=== PATIENT | male | born 1960 | race Caucasian/White ===

== ENCOUNTER 2020-02-17 18:24 | Observation (INO) | payer OTHER ==
[2020-02-17] MEDS ORDERED: Multivitamins, Adult 10 ML, Thiamine HCl 100 MG, Folic Acid 1 MG in Dextrose 5 %-0.45 %... IV SCH (19:00)
[2020-02-17 19:09] LABS: Bilirubin Negative (Negative); Blood, Urine Negative (Negative); Clarity Clear (Clear); Glucose, Urine (Dipstick) Normal (Negative); Ketone, Urine Negative (Negative); Leukocyte Negative Leu/uL (Negative); Nitrite Negative (Negative); Protein, Urine (Dipstick) Negative (Neg-Trace); Specific Gravity, Urine 1.003 (1.002-1.036); Urobilinogen Normal mg/dL (Less than 2)
[2020-02-17 19:15] LABS: #Eosinphils 0.3 thou/uL (0.0-0.7); #Lymphocytes 1.2 thou/uL (1.20-3.40); #Monocytes 0.4 thou/uL (0.11-0.59); #Neutrophils 2.1 thou/uL (1.40-6.50); %Basophils 0.9 % (0.0-1.0); %Eosinophils 6.8 % (0.0-10.0); %Lymphocytes 29.6 % (21.0-51.0); %Monocytes 9.7 % (0.0-10.0); %Neutrophils 53.1 % (42.0-75.0); Hemoglobin 12.6 g/dL (14.0-18.0); Mean Corpuscular HGB CONC 33.3 g/dL (32.0-36.0); Mean Corpuscular Hemoglobin 34.6 pg (27.0-31.0); Platelet Count 245 thou/uL (130-400); RBC Distribution Width 12.4 % (11.5-14.5); Red Blood Cell (RBC) Count 3.63 mill/uL (4.70-6.10); White Blood Cell (WBC) Count 3.9 thou/uL (4.8-10.8)
[2020-02-17 19:20] LABS: Amphetamine Not Detected (NotDetected); Barbiturates Screen Not Detected (NotDetected); Benzodiazepine Screen Not Detected (NotDetected); Cocaine Metabolite Screen Not Detected (NotDetected); Medtox Control Line Valid? VALID (VALID); Medtox Reader # READER 1; Methadone Not Detected (NotDetected); Methamphetamine Not Detected (NotDetected); Opiate Screen Not Detected (NotDetected); Oxycodone Screen Not Detected (NotDetected); Phencyclidine (PCP) Not Detected (NotDetected); THC/Cannabinoid Screen Not Detected (NotDetected); Tricyclic Screen Detected (NotDetected)
[2020-02-17 19:31] LABS: ALT (SGPT) 19 U/L (8-55); AST (SGOT) 20 U/L (5-34); Acetaminophen Less than 6.0 mcg/mL (10.0-30.0); Albumin 3.5 g/dL (3.5-5.0); Alcohol 73 mg/dL (Less than 10); Alcohol 74 mg/dL (Less than 10); Alkaline Phosphatase 117 U/L (40-110); Anion Gap 13 mmol/L (10-20); BUN (Urea Nitrogen) 6 mg/dL (8.4-25.7); Bilirubin, Total 0.4 mg/dL (0.2-1.2); Calc. Creatinine Clearance 0 mL/min (70-130); Carbon Dioxide 21 mmol/L (22-29); Chloride 104 mmol/L (98-107); Estimated GFR-MDRD Greater than 90; Globulin 4.3 g/dL (2.4-3.5); Glucose 93 mg/dL (70-105); Lipase 29 U/L (8-78); Magnesium 1.8 mg/dL (1.6-2.6); Potassium 3.8 mmol/L (3.5-5.1); Protein, Total 7.8 g/dL (6.0-8.3); Salicylate Less than 8.0 mg/dL (15.0-30.0); Sodium 134 mmol/L (136-145)
--- NOTE | 2020-02-17 19:36 | CT ---
CT BRAIN 02/17/20 PROVIDED CLINICAL HISTORY: Altered mental status. FINDINGS: The ventricular system appears normal in size and morphology. There is no evidence for intracranial h emorrhage or mass effect. Encephalomalacia is demonstrated involving the left PICA distribution joshua tible with remote infarction. Encephalomalacia is seen involving the inferior right frontal region co mpatible with sequela of prior insult. The extracranial soft tissues and osseous structures demonstra te an unremarkable CT appearance. IMPRESSION: No evidence for intracranial hemorrhage or mass effect. POS: NATALEE
[2020-02-17] MEDS ORDERED: Aspirin 325 MG TAB ONE (20:20)
[2020-02-17] MEDS ORDERED: Thiamine HCl 500 MG in Sodium Chloride 0.9% 100 ML IVPB SCH (20:30)
[2020-02-17] MEDS ORDERED: Acetaminophen 650 MG Suppository PR PRN (21:18)
[2020-02-17] MEDS ORDERED: HYDROcodone/Acetaminophen 5/325 mg Tablet PO PRN (21:18)
[2020-02-17] MEDS ORDERED: Acetaminophen 325 MG TAB PO PRN (21:18)
[2020-02-17] MEDS ORDERED: Ondansetron PF 4 MG/2 ML Vial IVP PRN (21:18)
[2020-02-17] MEDS ORDERED: Calcium Carbonate 500 MG ChewTAB PO PRN (21:18)
[2020-02-17] MEDS ORDERED: Ondansetron ODT 4 MG TAB PO PRN (21:18)
--- NOTE | 2020-02-17 21:24 | PDOC.HHP ---
Hospitalist HPI - History of Present Illness ataxia altered mental state History of Present Illness: Case of an 59-year-old male with a pmhx of alcohol abuse, smoker, hx of stroke with residual L sided weakness, hypothyroidism, and lung ca s/p resection who present to the hospital due to slurred speech and altered mental status. The history is complicated by the fact that the patient has very slow speech although he does not have aphasia or dysphagia he is very slow to speak and appears intoxicated. apparently his sister got concern because patient was having stroke like symptoms. At arrival patient was evaluated by ED who noted patient had ataxia nystagmus and altered mental stated, due to his history of alcohol abuse wenicke's encephalopathy was suscoected and patient was started on IV thiamine. during my evaluation it was noted that patient had significant improvement of his symptoms, seemmed no longer confused and ataxia had improved. patient was not able to answer many questions because he did not remember what had actually happened. pt does refers heavy alcohol use and a poor diet Hospitalist ROS - Review of Systems All other systems reviewed; all pertinent +/- noted in HPI/Subj - Exam General Appearance: NAD, awake alert Eye: PERRL, anicteric sclera ENT: normocephalic atraumatic, no oropharyngeal lesions, dry oral mucosa Neck: supple, symmetric, no JVD Heart: RRR, no murmur, no gallops Respiratory: CTAB, no wheezes, no rales Gastrointestinal: soft, non-tender, non-distended Extremities: no cyanosis, no clubbing, no edema Extremities - other findings: L sided weakness Skin: normal turgor, no lesions, no rashes Neurological: cranial nerve grossly intact, normal sensation to touch, no weakness, no new deficit Musculoskeletal: normal tone, normal strength, no muscle wasting Psychiatric: normal affect, normal behavior, A&O x 3 Hospitalist Results - Labs Result Diagrams: 02/17/20 19:06 02/17/20 19: Lab results: WBC 3.9 thou/uL (4.8-10.8) L 02/17/20 19: Hgb 12.6 g/dL (14.0-18.0) L 02/17/20 19: Hct 37.8 % (42.0-52.0) L 02/17/20 19: MCV 104.0 fL (78.0-98.0) H 02/17/20 19:06 Plt Count 245 thou/uL (130-400) 02/17/20 19:06 Neutrophils % 53.1 % (42.0-75.0) 02/17/20 19:06 Sodium 134 mmol/L (136-145) L 02/17/20 19:06 Potassium 3.8 mmol/L (3.5-5.1) 02/17/20 19:06 Chloride 104 mmol/L (98-107) 02/17/20 19:06 Carbon Dioxide 21 mmol/L (22-29) L 02/17/20 19:06 BUN 6 mg/dL (8.4-25.7) L 02/17/20 19:06 Creatinine 0.64 mg/dL (0.7-1.3) L 02/17/20 19:06 Glucose 93 mg/dL (70-105) 02/17/20 19:06 Calcium 9.0 mg/dL (7.8-10.44) 02/17/20 19:06 Total Bilirubin 0.4 mg/dL (0.2-1.2) 02/17/20 19:06 AST 20 U/L (5-34) 02/17/20 19:06 ALT 19 U/L (8-55) 02/17/20 19:06 Alkaline Phosphatase 117 U/L (40-110) H 02/17/20 19:06 Serum Total Protein 7.8 g/dL (6.0-8.3) 02/17/20 19:06 Albumin 3.5 g/dL (3.5-5.0) 02/17/20 19:06 Lipase 29 U/L (8-78) 02/17/20 19:06 Urine Ketones Negative mg/dL (Negative) 02/17/20 18:53 Urine Blood Negative (Negative) 02/17/20 18:53 Urine Nitrite Negative (Negative) 02/17/20 18:53 Ur Leukocyte Esterase Negative Laya/uL (Negative) 02/17/20 18:53 Hospitalist H&P A/P - Problem (1) Wernicke encephalopathy Code(s): E51.2 - WERNICKE'S ENCEPHALOPATHY Status: Acute (2) CVA (cerebral vascular accident) Code(s): I63.9 - CEREBRAL INFARCTION, UNSPECIFIED Status: Acute (3) Hypothyroidism Code(s): E03.9 - HYPOTHYROIDISM, UNSPECIFIED Status: Acute (4) History of CVA (cerebrovascular accident) Code(s): Z86.73 - PRSNL HX OF TIA (TIA), AND CEREB INFRC W/O RESID DEFICITS Status: Acute (5) Alcohol abuse Code(s): F10.10 - ALCOHOL ABUSE, UNCOMPLICATED Status: Acute (6) Smoker Code(s): F17.200 - NICOTINE DEPENDENCE, UNSPECIFIED, UNCOMPLICATED Status: Acute (7) Hx of cancer of lung Code(s): Z85.118 - PERSONAL HISTORY OF MALIGNANT NEOPLASM OF BRONCHUS AND LUNG Status: Acute - Plan Plan: 59y/o male with the stated pmhx who presents with h/s wernickes encephalopathy r/o cva wenickes encephalopathy - tried on nystagmus ataxia and confusion - hx of alcohol abuse and poor nutrition - will start iv thiamine 500mg iv tid for 2-3 days, then switch to 250mg iv or im daily for 5 days then discharge with 100mg po daily - nuero checks r/o cva / tia - ischemic event still in the Ddx - head ct negative for acute event, does show old infarcts - will eveluated with MRI, 2echo and carotid doppler - starting secondary preventon with asa and statin - evaluation on modifiable risk factors with lipid panel and a1c -pt / ot / speech alcohol abuse -ase protocol smoker - advice to quit hypothyroidism - check tsh - refers recent increase to 75mcg
[2020-02-17] MEDS ORDERED: Diazepam 5 MG TAB PO PRN (22:01)
[2020-02-17] MEDS ORDERED: Diazepam 5 MG TAB PO SCH (22:15)
[2020-02-17] MEDS ORDERED: Lorazepam 2 MG/ML VIAL ONE (23:08)
[2020-02-18] MEDS ORDERED: Multivitamins, Adult 10 ML, Folic Acid 1 MG, Thiamine HCl 100 MG in Dextrose 5 %-0.45 %... IV SCH (01:30)
[2020-02-18 03:51] VITALS: BMI 20.6
[2020-02-18] MEDS ORDERED: Diazepam 5 MG TAB PO PRN (04:00)
[2020-02-18 05:39] LABS: Hemoglobin A1c 4.4 % (4.0-6.0)
[2020-02-18 05:53] LABS: ALT (SGPT) 18 U/L (8-55); AST (SGOT) 18 U/L (5-34); Albumin 3.1 g/dL (3.5-5.0); Alkaline Phosphatase 103 U/L (40-110); Anion Gap 11 mmol/L (10-20); BUN (Urea Nitrogen) 7 mg/dL (8.4-25.7); Bilirubin, Total 0.4 mg/dL (0.2-1.2); Calc. Creatinine Clearance 129 mL/min (70-130); Calcium 8.7 mg/dL (7.8-10.44); Carbon Dioxide 24 mmol/L (22-29); Cardiac Risk 3.8 (Less than 4.5); Chloride 108 mmol/L (98-107); Cholesterol 152 mg/dl (< 200 Desired); Estimated GFR-MDRD Greater than 90; Globulin 3.7 g/dL (2.4-3.5); Glucose 135 mg/dL (70-105); HDL Cholesterol 40 mg/dL (>60 Neg Risk); LDL Cholesterol, Calculated 99 mg/dL; Magnesium 1.9 mg/dL (1.6-2.6); Potassium 3.8 mmol/L (3.5-5.1); Protein, Total 6.8 g/dL (6.0-8.3); Sodium 139 mmol/L (136-145); Triglycerides 66 mg/dL (Less than 150)
[2020-02-18 06:04] LABS: Band 2 % (5-11); Eosinophils 3 % (0-10); Hemoglobin 12.3 g/dL (14.0-18.0); Lymphocytes 29 % (21-51); MDiff Complete? YES; Macrocytosis SLIGHT = 6-15 cells (100X) (0-5/hpf); Mean Corpuscular HGB CONC 32.2 g/dL (32.0-36.0); Mean Corpuscular Hemoglobin 33.4 pg (27.0-31.0); Mean Platelet Volume 7.2 fL (7.4-10.4); Monocytes 7 % (0-10); Neutrophil 59 % (42-75); Platelet Count 247 thou/uL (130-400); Platelet Morphology Comment Appears Adequate; RBC Distribution Width 12.4 % (11.5-14.5); Red Blood Cell (RBC) Count 3.67 mill/uL (4.70-6.10); White Blood Cell (WBC) Count 3.4 thou/uL (4.8-10.8)
[2020-02-18] MEDS ORDERED: Folic Acid 1 MG TAB PO SCH (09:00)
[2020-02-18] MEDS ORDERED: Gabapentin 300 MG CAP PO SCH (09:00)
[2020-02-18] MEDS ORDERED: Enoxaparin Sodium 40 MG/0.4 ML SYRINGE SC SCH (09:00)
[2020-02-18] MEDS ORDERED: Aspirin 325 mg Enteric Coated Tablet PO SCH (09:00)
[2020-02-18] MEDS ORDERED: Magnesium Oxide 400 MG TAB PO SCH (09:00)
[2020-02-18] MEDS ORDERED: Levothyroxine Sodium 75 MCG TAB PO SCH (09:00)
[2020-02-18] MEDS ORDERED: Multivitamin W/ Minerals 1 TAB PO SCH (09:00)
[2020-02-18] MEDS ORDERED: Thiamine HCl 200 MG/2 ML VIAL SLOW IVP SCH (09:00)
--- NOTE | 2020-02-18 09:42 | ULT ---
BILATERAL CAROTID DUPLEX ULTRASOUND: DATE: 02/18/2020 HISTORY: CVA. TECHNIQUE: Faith scale ultrasound with color flow and spectral Doppler imaging of the extracranial carotid artery systems performed bilaterally. FINDINGS: No significant plaque formation or intimal wall thickening is seen on either side. The peak systolic velocity in the right ICA measures 60 cm/second with an end-diastolic velocity of 1 8 cm/second and a systolic ratio of 0.65. The peak systolic velocity in the left ICA measures 51 cm/second with an end-diastolic velocity of 18 cm/second and a systolic ratio of 0.65. Flow in both vertebral arteries remains antegrade. IMPRESSION: No evidence of hemodynamically significant stenosis. POS: MZA
--- NOTE | 2020-02-18 10:48 | MRI ---
MRI BRAIN WITHOUT CONTRAST: DATE: 02/18/2020 HISTORY: Altered mental status, stroke. FINDINGS: Correlation is made with the previous day's CT scan. No restricted diffusion is seen. No evidence of infarct, hemorrhage, midline shift, or abnormal extra -axial fluid collections are seen. The ventricular size is normal and the basilar cisterns are patent . Encephalomalacia in the inferior right frontal lobe is likely due to remote insult. No tonsillar he rniation is seen. There is mild mucosal disease in the paranasal sinuses. IMPRESSION: No evidence of acute intracranial process. POS: CHALINO
[2020-02-18] MEDS: Thiamine HCl 500 MG in Sodium Chloride 0.9% 250 ML 250 ML IVPB SCH ×2 (10:56→14:59)
[2020-02-18 12:08] VITALS: BP 121/76; TEMP 98.1
--- NOTE | 2020-02-18 12:18 | CON ---
NEUROLOGY CONSULTATION DATE OF CONSULTATION: 02/18/2020 REASON FOR CONSULTATION: Altered mental status, history of alcohol abuse/ataxia. HISTORY OF PRESENT ILLNESS: Mr. Feliz is a 59-year-old male with medical history significant for alcohol abuse, nicotine abuse, history of prior stroke with left-sided weakness, hypothyroidism, and status post lung carcinoma resection, presented to the hospital with an episode of slurred speech and altered mental status. The history was complicated because the patient seems to be intoxicated. Apparently, the sister got concerned because the patient was having stroke-like symptoms and she decided to bring him to the hospital for further evaluation. On examination in the emergency room, he was found to have ataxia, nystagmus, and seemed to be confused, and there was a concern about Wernicke encephalopathy, so he was started on IV thiamine, which resolved his symptoms and his altered mental status and ataxia have improved. The patient does have history of heavy alcohol use and poor diet. The patient denies nausea, vomiting, headache, chest pain, abdominal pain, recent illness or recent sick contacts or exposure to COVID. REVIEW OF SYSTEMS: All other systems reviewed and were negative except the pertinent positives and negatives mentioned in the HPI. ALLERGIES: NKDA PAST MEDICAL HISTORY: significant for alcohol abuse, nicotine abuse, history of prior stroke with left-sided weakness, hypothyroidism, and Lung ca PAST SURGICAL HISTORY: status post lung carcinoma resection FAMILY HISTORY: Not significant SOCIAL HISTORY: History of alcohol abuse - Exam 121/76 94 18 General Appearance: NAD, awake alert Eye: PERRL, anicteric sclera ENT: normocephalic atraumatic, no oropharyngeal lesions, dry oral mucosa Neck: supple, symmetric, no JVD Heart: RRR, no murmur, no gallops Respiratory: CTAB, no wheezes, no rales Gastrointestinal: soft, non-tender, non-distended Extremities: no cyanosis, no clubbing, no edema Extremities - other findings: L sided weakness Skin: normal turgor, no lesions, no rashes Neurological: cranial nerve grossly intact, normal sensation to touch, no weakness Musculoskeletal: normal tone, normal strength, no muscle wasting Psychiatric: normal affect, normal behavior, A&O x 3 LABORATORY AND DIAGNOSTIC DATA: Data reviewed. I reviewed the labs, which were significant for anemia, hemoglobin of 12.6 and hematocrit 37.8. Hyponatremia of 134. WBC 3.9 thou/uL (4.8-10.8) L 02/17/20 19:06 Hgb 12.6 g/dL (14.0-18.0) L 02/17/20 19:06 Hct 37.8 % (42.0-52.0) L 02/17/20 19:06 MCV 104.0 fL (78.0-98.0) H 02/17/20 19:06 Plt Count 245 thou/uL (130-400) 02/17/20 19:06 Neutrophils % 53.1 % (42.0-75.0) 02/17/20 19:06 Sodium 134 mmol/L (136-145) L 02/17/20 19:06 Potassium 3.8 mmol/L (3.5-5.1) 02/17/20 19:06 Chloride 104 mmol/L (98-107) 02/17/20 19:06 Carbon Dioxide 21 mmol/L (22-29) L 02/17/20 19:06 BUN 6 mg/dL (8.4-25.7) L 02/17/20 19:06 Creatinine 0.64 mg/dL (0.7-1.3) L 02/17/20 19:06 Glucose 93 mg/dL (70-105) 02/17/20 19:06 Calcium 9.0 mg/dL (7.8-10.44) 02/17/20 19:06 Total Bilirubin 0.4 mg/dL (0.2-1.2) 02/17/20 19:06 AST 20 U/L (5-34) 02/17/20 19:06 ALT 19 U/L (8-55) 02/17/20 19:06 Alkaline Phosphatase 117 U/L (40-110) H 02/17/20 19:06 Serum Total Protein 7.8 g/dL (6.0-8.3) 02/17/20 19:06 Albumin 3.5 g/dL (3.5-5.0) 02/17/20 19:06 Lipase 29 U/L (8-78) 02/17/20 19:06 Urine Ketones Negative mg/dL (Negative) 02/17/20 18:53 Urine Blood Negative (Negative) 02/17/20 18:53 Urine Nitrite Negative (Negative) 02/17/20 18:53 Ur Leukocyte Esterase Negative Laya/uL (Negative) 02/17/20 18:53 ASSESSMENT AND PLAN: (1) Wernicke encephalopathy Code(s): E51.2 - WERNICKE'S ENCEPHALOPATHY Status: Acute (2) CVA (cerebral vascular accident) Code(s): I63.9 - CEREBRAL INFARCTION, UNSPECIFIED Status: Acute (3) Hypothyroidism Code(s): E03.9 - HYPOTHYROIDISM, UNSPECIFIED Status: Acute (4) History of CVA (cerebrovascular accident) Code(s): Z86.73 - PRSNL HX OF TIA (TIA), AND CEREB INFRC W/O RESID DEFICITS Status: Acute (5) Alcohol abuse Code(s): F10.10 - ALCOHOL ABUSE, UNCOMPLICATED Status: Acute (6) Smoker Code(s): F17.200 - NICOTINE DEPENDENCE, UNSPECIFIED, UNCOMPLICATED Status: Acute (7) Hx of cancer of lung Code(s): Z85.118 - PERSONAL HISTORY OF MALIGNANT NEOPLASM OF BRONCHUS AND LUNG Status: Acute Mr. Feliz is a 59-year-old male, who presented with altered mental status with nystagmus and ataxia in the setting of alcohol abuse and poor nutrition. Wernicke encephalopathy is high on the differential. Continue thiamine supplementation, which resulted in improvement of his symptoms. Continue neuro checks every 4 hours. MRI of the brain reviewed, which was negative for acute intracranial pathology. 2D echo completed, results pending, we will follow up on the results. Carotid Dopplers did not reveal hemodynamically significant stenosis. Continue aspirin and high-intensity statin for secondary stroke prevention. PT/OT/speech. The patient is back to the baseline in terms of mental status and is alert and oriented to person, place, and time. CIWA protocol. Continue home medications. Continue medical management per primary team. Plan discussed with the patient and also with the nursing staff. Job ID: [id number] [facility]
[2020-02-18 16:22] LABS: SARS-CoV-2 MS2 Positive; SARS-CoV-2 N Gene Negative; SARS-CoV-2 S Gene Negative; SARS-CoV-2 by NAA Not Detected (NotDetected); SARS-CoV-2 orf1ab Negative
--- NOTE | 2020-02-18 19:34 | DIS ---
DATE OF ADMISSION: 02/17/2020 DATE OF DISCHARGE: 02/18/2020 DISCHARGE DIAGNOSES: As of the following; 1. Ataxia, altered mental status. 2. Alcohol abuse. 3. Lung cancer with recent resection. HOSPITAL COURSE: The patient is a 59-year-old male who initially presented to the hospital with ataxia and altered mental status. There was a concern for possible stroke versus TIA. At this time, the patient was noted to have an elevated alcohol level. He was admitted for stroke, TIA workup. CT head initially was negative. He did undergo a stroke workup including a brain MRI, carotid Dopplers, and echo. Brain MRI indicated no evidence of intracranial processes. Carotid Doppler was normal and also echocardiogram indicated an EF of 50% to 55% with no significant abnormalities noted. The patient at this time felt well. He was up, oriented to self. Also he had a sponsor with him at the bedside. The patient at this time will be discharged home. He will follow up with primary. He was advised to refrain from alcohol. He states that he has never had any alcohol withdrawal symptoms. DISCHARGE PHYSICAL EXAMINATION: VITAL SIGNS: 98.6, 90, 20, 96% on room air, 111/66. GENERAL: He is awake, alert, and oriented x3. Does not appear in distress. CV: S1, S2 present. No murmurs, rubs, or gallops. HOME MEDICATIONS: 1. Seroquel 2 tabs at bedtime. 2. [place] 3 tabs at bedtime, his lithium level was low. 3. Gabapentin 3 tabs b.i.d. 4. Levothyroxine 75 mcg daily. 5. Thiamine 100 mg daily. 6. Folic acid one daily. 7. Atorvastatin 40 mg daily. 8. Aspirin 81 mg daily. Again, he will be discharged to home. I have asked him to refrain from alcohol use. Job ID: [id number]
[2020-02-18] MEDS ORDERED: Atorvastatin Calcium 40 MG TAB PO SCH (21:00)
[2020-02-19] MEDS ORDERED: Levothyroxine Sodium 75 MCG TAB PO SCH (06:00)
== END 2020-02-18 15:00 | disposition home or self-care (01) ==
LOC: ERS 18:24 → 2SE 20:57
PROVIDERS: ADMIT Internal Medicine; ATTEND Internal Medicine
DX: R41.82 Altered mental status, unspecified (principal); R27.0 Ataxia, unspecified; R47.81 Slurred speech; F10.10 Alcohol abuse, uncomplicated; F17.210 Nicotine dependence, cigarettes, uncomplicated; I69.354 Hemiplegia and hemiparesis following cerebral infarction affecting left non-dominant side; E03.9 Hypothyroidism, unspecified; D64.9 Anemia, unspecified; E87.1 Hypo-osmolality and hyponatremia; Z85.118 Personal history of other malignant neoplasm of bronchus and lung; Z79.899 Other long term (current) drug therapy; Z20.828 Contact with and (suspected) exposure to other viral communicable diseases; Y90.3 Blood alcohol level of 60-79 mg/100 ml; Z12.31 Encounter for screening mammogram for malignant neoplasm of breast
CPT/HCPCS: 36415; 36416; 70450; 70551; 80053; 80061; 80178; 80306; 80307; 81003; 83036; 83690; 83735; 84443; 85007; 85025; 85027; 87040; 87086; 87635; 93005; 93306; 93880; 96365; 96366; 96368; 96372; 96375; G0378; J1650; J2060; J3411; J3475; J3490; J7042; J7050; U0003

== ENCOUNTER → 2020-02-17 | Emergency (ER) | payer OTHER | LOC: ERS 22:31 | DX: Z53.21 Procedure and treatment not carried out due to patient leaving prior to being seen by health care provider (principal) | CPT/HCPCS: 36416 ==

== ENCOUNTER 2022-12-31 12:33 | Inpatient (IN) | payer OTHER ==
[~2022-12-31 12:33] MED LIST: Iopamidol-370 76% 500 ML MDV (1 ML CHARGE) ONE
[2022-12-31 13:23] LABS: #Eosinphils 0.1 thou/uL (0.0-0.7); #Monocytes 1.2 thou/uL (0.11-0.59); #Neutrophils 8.3 thou/uL (1.40-6.50); %Basophils 0.2 % (0.0-1.0); %Eosinophils 0.8 % (0.0-10.0); %Lymphocytes 9.7 % (21.0-51.0); %Monocytes 11.4 % (0.0-10.0); %Neutrophils 77.4 % (42.0-75.0); Hematocrit 40.6 % (42.0-52.0); Hemoglobin 13.7 g/dL (14.0-18.0); Mean Corpuscular HGB CONC 33.7 g/dL (32.0-36.0); Mean Corpuscular Hemoglobin 33.5 pg (27.0-31.0); Mean Corpuscular Volume 99.3 fl (78.0-98.0); Mean Platelet Volume 9.5 fL (7.4-10.4); Platelet Count 269 10x3/uL (130-400); RBC Distribution Width 13.1 % (11.5-14.5); Red Blood Cell (RBC) Count 4.09 mill/uL (4.70-6.10); White Blood Cell (WBC) Count 10.7 10x3/uL (4.8-10.8)
[2022-12-31 13:45] LABS: ALT (SGPT) 14 U/L (8-55); AST (SGOT) 16 U/L (5-34); Alcohol Less than 10.0 mg/dL (Less than 10); Alkaline Phosphatase 109 U/L (40-110); Anion Gap 19 mmol/L (10-20); BUN (Urea Nitrogen) 20 mg/dL (8.4-25.7); Bilirubin, Total 1.9 mg/dL (0.2-1.2); Calc. Creatinine Clearance 0 mL/min (70-130); Calcium 9.3 mg/dL (7.8-10.44); Carbon Dioxide 22 mmol/L (23-31); Chloride 107 mmol/L (98-107); Estimated GFR 107; Globulin 3.2 g/dL (2.4-3.5); Glucose 92 mg/dL (80-115); Potassium 3.9 mmol/L (3.5-5.1); Protein, Total 7.2 g/dL (5.8-8.1); Sodium 144 mmol/L (136-145)
[2022-12-31] MEDS ORDERED: Thiamine HCl 200 MG/2 ML VIAL SLOW IVP SCH ×2 (13:45→15:00)
[2022-12-31 13:46] LABS: Acetaminophen Less than 10 mcg/mL (10.0-30.0); Alcohol Less than 10.0 mg/dL (Less than 10); Lipase 32 U/L (8-78); Magnesium 1.8 mg/dL (1.6-2.6); Salicylate Less than 8.0 mg/dL (15.0-30.0)
[2022-12-31] MEDS ORDERED: Dexamethasone 10 MG/ML VIAL ONE (14:01)
[2022-12-31] MEDS ORDERED: Senokot S 8.6-50 MG TAB PO PRN (14:40)
[2022-12-31] MEDS ORDERED: Acetaminophen 650 MG Suppository PR PRN (14:40)
[2022-12-31] MEDS ORDERED: Ondansetron PF 4 MG/2 ML Vial IVP PRN (14:40)
[2022-12-31] MEDS ORDERED: Lorazepam 1 MG TAB PO PRN (14:40)
[2022-12-31] MEDS ORDERED: Electrolyte Replacement Protocol 1 EACH FS SCH (14:45)
[2022-12-31 15:20] LABS: Troponin I Less than 0.010 ng/mL (< 0.028)
[2022-12-31] MEDS: Sodium Chloride 0.9% 1,000 ML IV SCH (15:59)
[2022-12-31] MEDS ORDERED: FLU VACC QS2023-24(6MOS UP)/PF 60 MCG/0.5 ML SYRINGE IM ONE (16:00)
[2022-12-31 16:53] LABS: #Monocytes 0.3 thou/uL (0.11-0.59); #Neutrophils 7.7 thou/uL (1.40-6.50); %Basophils 0.2 % (0.0-1.0); %Eosinophils 0.2 % (0.0-10.0); %Lymphocytes 5.6 % (21.0-51.0); %Monocytes 3.9 % (0.0-10.0); %Neutrophils 89.9 % (42.0-75.0); Hematocrit 40.5 % (42.0-52.0); Hemoglobin 13.9 g/dL (14.0-18.0); Mean Corpuscular HGB CONC 34.3 g/dL (32.0-36.0); Mean Corpuscular Hemoglobin 33.8 pg (27.0-31.0); Mean Corpuscular Volume 98.5 fl (78.0-98.0); Mean Platelet Volume 9.9 fL (7.4-10.4); Platelet Count 238 10x3/uL (130-400); RBC Distribution Width 13.3 % (11.5-14.5); Red Blood Cell (RBC) Count 4.11 mill/uL (4.70-6.10); White Blood Cell (WBC) Count 8.6 10x3/uL (4.8-10.8)
[2022-12-31 17:38] LABS: Amphetamine Not Detected (NotDetected); Barbiturates Screen Not Detected (NotDetected); Benzodiazepine Screen Not Detected (NotDetected); Cocaine Metabolite Screen Not Detected (NotDetected); Methadone Not Detected (NotDetected); Methamphetamine Detected (NotDetected); Opiate Screen Not Detected (NotDetected); Oxycodone Screen Not Detected (NotDetected); Phencyclidine (PCP) Not Detected (NotDetected); THC/Cannabinoid Screen Not Detected (NotDetected); Tricyclic Screen Not Detected (NotDetected)
[2022-12-31 17:43] LABS: Bacteria/HPF None Seen HPF (None Seen); Bilirubin 1+ (Negative); Blood, Urine Negative (Negative); CAUTI Indications for Culture Alt mental st,lethar; Clarity Clear (Clear); Glucose, Urine (Dipstick) Normal (Negative); Ketone, Urine 100 mg/dL (Negative); Leukocyte Negative Leu/uL (Negative); Nitrite Negative (Negative); Protein, Urine (Dipstick) 30 mg/dL (Neg-Trace); RBC/HPF 0-3 HPF (0-3); Specific Gravity, Urine 1.023 (1.002-1.036); Squamous Epithelial None Seen HPF (0-3); Urobilinogen Greater than 12 mg/dL (Less than 2); WBC/HPF 0-3 HPF (0-3)
[2022-12-31 17:44] LABS: Urine Culture Reflex No No
[2022-12-31] MEDS: Atorvastatin Calcium 40 MG TAB PO SCH (20:58)
[2022-12-31] MEDS: Dexamethasone 4 mg/ml Vial SLOW IVP SCH (21:37)
[2022-12-31] MEDS ORDERED: Dexamethasone 4 MG TAB PO SCH (22:00)
[2023-01-01] MEDS ORDERED: Magnesium 2 GM/50 ML(in water) 2 GM in Premix Bag 1 BAG IVPB SCH (01:45)
[2023-01-01] MEDS: Dexamethasone 4 mg/ml Vial SLOW IVP SCH ×4 (04:19→21:59)
[2023-01-01 05:13] LABS: #Neutrophils 17.5 thou/uL (1.40-6.50); %Basophils 0.2 % (0.0-1.0); %Lymphocytes 2.6 % (21.0-51.0); %Monocytes 5.2 % (0.0-10.0); %Neutrophils 91.3 % (42.0-75.0); Hematocrit 43.6 % (42.0-52.0); Hemoglobin 14.8 g/dL (14.0-18.0); Mean Corpuscular HGB CONC 33.9 g/dL (32.0-36.0); Mean Corpuscular Hemoglobin 33.1 pg (27.0-31.0); Mean Corpuscular Volume 97.5 fl (78.0-98.0); Mean Platelet Volume 9.8 fL (7.4-10.4); RBC Distribution Width 13.2 % (11.5-14.5); Red Blood Cell (RBC) Count 4.47 mill/uL (4.70-6.10)
[2023-01-01] MEDS ORDERED: Sodium Chloride 0.9% 500 ML IV SCH (05:15)
[2023-01-01 05:23] LABS: Hemoglobin A1c 4.8 % (4.0-6.0)
[2023-01-01 05:29] LABS: White Blood Cell (WBC) Count 19.2 10x3/uL (4.8-10.8)
[2023-01-01 05:30] LABS: Platelet Count 355 10x3/uL (130-400)
[2023-01-01] MEDS ORDERED: Acetaminophen 325 MG Suppository PR SCH (05:30)
[2023-01-01 05:45] LABS: ALT (SGPT) 17 U/L (8-55); AST (SGOT) 16 U/L (5-34); Alkaline Phosphatase 118 U/L (40-110); Anion Gap 21 mmol/L (10-20); BUN (Urea Nitrogen) 17 mg/dL (8.4-25.7); Calc. Creatinine Clearance 105 mL/min (70-130); Calcium 9.4 mg/dL (7.8-10.44); Carbon Dioxide 19 mmol/L (23-31); Chloride 108 mmol/L (98-107); Cholesterol 165 mg/dl (< 200 Desired); Estimated GFR 110; Globulin 3.3 g/dL (2.4-3.5); Glucose 101 mg/dL (80-115); HDL Cholesterol 41 mg/dL (>60 Neg Risk); LDL Cholesterol, Calculated 113 mg/dL; Potassium 3.7 mmol/L (3.5-5.1); Protein, Total 7.3 g/dL (5.8-8.1); Sodium 144 mmol/L (136-145); Triglycerides 55 mg/dL (Less than 150)
[2023-01-01] MEDS ORDERED: Cefepime 2 GM in Sodium Chloride 0.9% 100 ML IVPB SCH (06:00)
[2023-01-01] MEDS: Sodium Chloride 0.9% 1,000 ML IV SCH (06:00)
[2023-01-01] MEDS ORDERED: Piperacillin/Tazobactam 3.375 GM in Sodium Chloride 0.9% 100 ML IVPB SCH (06:00)
[2023-01-01 06:01] LABS: #Monocytes 1.2 thou/uL (0.11-0.59); #Neutrophils 16.8 thou/uL (1.40-6.50); %Basophils 0.1 % (0.0-1.0); %Monocytes 6.3 % (0.0-10.0); %Neutrophils 91.2 % (42.0-75.0); Hematocrit 42.5 % (42.0-52.0); Hemoglobin 14.4 g/dL (14.0-18.0); Mean Corpuscular HGB CONC 33.9 g/dL (32.0-36.0); Mean Corpuscular Hemoglobin 33.8 pg (27.0-31.0); Mean Corpuscular Volume 99.8 fl (78.0-98.0); Mean Platelet Volume 9.6 fL (7.4-10.4); Platelet Count 320 10x3/uL (130-400); RBC Distribution Width 13.2 % (11.5-14.5); Red Blood Cell (RBC) Count 4.26 mill/uL (4.70-6.10); White Blood Cell (WBC) Count 18.4 10x3/uL (4.8-10.8)
[2023-01-01] MEDS: Levothyroxine Sodium 75 MCG TAB PO SCH (06:20)
[2023-01-01 07:53] LABS: Lactic Acid 1.4 mmol/L (0.5-2.2)
[2023-01-01] MEDS ORDERED: Vancomycin (BATCH) 1.5 GM 1.5 GM in Premix Bag 1 BAG IVPB SCH (08:00)
[2023-01-01] MEDS ORDERED: Aspirin Chewable 81 MG TAB PO SCH (09:00)
[2023-01-01] MEDS ORDERED: Aspirin 300 MG Suppository PR SCH (09:00)
[2023-01-01 09:27] VITALS: BMI 17.5
[2023-01-01] MEDS: Folic Acid 1 MG TAB PO SCH (11:25)
[2023-01-01] MEDS: Multivit, Therapeutic 1 TAB PO SCH (11:25)
[2023-01-01] MEDS: Piperacillin/Tazobactam 3.375 GM in Sodium Chloride 0.9% 100 ML IVPB SCH ×2 (12:18→17:46)
[2023-01-01 13:55] LABS: Actual Bicarbonate (HCO3a) 22.4 mEq/L (22-28); Base Excess (BEa) -0.1 mEq/L (-2.0 to +3.0); CO2 Tension 30.9 mmHg (35.0-45.0); Carboxyhemoglobin (COHb) 1.1 gm% (0.0-3.0); Hematocrit-ABG 42 % (42.0-52.0); Hemoglobin (Hb) 14.4 g/dL (14.0-18.0); O2 Tension (PaO2), arterial 72.4 mmHg (> 80.0); Potassium - ABG Lab 3.55 mmol/L (3.70-5.30); Puncture Site RRA; pH, Arterial 7.479 (7.35-7.45)
[2023-01-01] MEDS: Lactated Ringer's 1,000 ML IV SCH ×2 (14:05→17:52)
[2023-01-01] MEDS ORDERED: Lorazepam 1 MG TAB PO PRN (14:41)
[2023-01-01] MEDS ORDERED: Thiamine HCl 200 MG/2 ML VIAL SLOW IVP SCH (15:15)
[2023-01-01] MEDS: Thiamine HCl 200 MG/2 ML VIAL SLOW IVP SCH (16:47)
[2023-01-01] MEDS: Nystatin 500,000 UNITS/5 ML UDCUP SSP SCH (20:25)
[2023-01-01] MEDS: Famotidine/PF 20 mg/2ml Vial SLOW IVP SCH (20:26)
[2023-01-01] MEDS: Ketorolac Tromethamine 30 MG/ML VIAL IVP PRN (20:26)
[2023-01-01] MEDS: Vancomycin 1 GM in Premix Bag 1 BAG IVPB SCH (20:27)
[2023-01-01] MEDS: Atorvastatin Calcium 40 MG TAB PO SCH (20:27)
[2023-01-02] MEDS: Piperacillin/Tazobactam 3.375 GM in Sodium Chloride 0.9% 100 ML IVPB SCH ×3 (02:15→18:24)
[2023-01-02 04:54] LABS: ALT (SGPT) 14 U/L (8-55); AST (SGOT) 10 U/L (5-34); Albumin 3.3 g/dL (3.4-4.8); Alkaline Phosphatase 78 U/L (40-110); Anion Gap 15 mmol/L (10-20); BUN (Urea Nitrogen) 22 mg/dL (8.4-25.7); Bilirubin, Total 1.9 mg/dL (0.2-1.2); Calc. Creatinine Clearance 103 mL/min (70-130); Calcium 9.3 mg/dL (7.8-10.44); Carbon Dioxide 23 mmol/L (23-31); Chloride 110 mmol/L (98-107); Estimated GFR 109; Glucose 133 mg/dL (80-115); Phosphorus 2.5 mg/dL (2.3-4.7); Potassium 3.7 mmol/L (3.5-5.1); Protein, Total 6.3 g/dL (5.8-8.1); Sodium 144 mmol/L (136-145)
[2023-01-02] MEDS: Dexamethasone 4 mg/ml Vial SLOW IVP SCH ×4 (05:05→21:28)
[2023-01-02] MEDS: Levothyroxine Sodium 75 MCG TAB PO SCH (05:09)
[2023-01-02] MEDS ORDERED: Magnesium 2 GM/50 ML(in water) 2 GM in Premix Bag 1 BAG IVPB SCH (08:00)
[2023-01-02] MEDS: Famotidine/PF 20 mg/2ml Vial SLOW IVP SCH ×2 (09:25→21:28)
[2023-01-02] MEDS: Nystatin 500,000 UNITS/5 ML UDCUP SSP SCH ×4 (09:29→20:35)
[2023-01-02] MEDS: Lactated Ringer's 1,000 ML IV SCH (09:45)
[2023-01-02] MEDS: Vancomycin 1 GM in Premix Bag 1 BAG IVPB SCH ×2 (09:46→20:34)
[2023-01-02 09:55] LABS: Hematocrit 42.1 % (42.0-52.0); Hemoglobin 13.9 g/dL (14.0-18.0); Mean Corpuscular Hemoglobin 33.4 pg (27.0-31.0); Mean Corpuscular Volume 101.2 fl (78.0-98.0); Mean Platelet Volume 10.2 fL (7.4-10.4); Platelet Count 172 10x3/uL (130-400); RBC Distribution Width 13.4 % (11.5-14.5); Red Blood Cell (RBC) Count 4.16 mill/uL (4.70-6.10)
[2023-01-02 10:01] LABS: Delete Auto Diff?? YES; Manual Diff?? YES
[2023-01-02] MEDS: Folic Acid 1 MG TAB PO SCH (10:21)
[2023-01-02] MEDS: Multivit, Therapeutic 1 TAB PO SCH (10:21)
[2023-01-02 10:25] LABS: Anisocytosis SLIGHT = 6-15 cells HPF (0-5); Band 28 % (5-11); CellaVision Operator ID lab.dlt; Lymphocytes 3 % (21-51); Macrocytosis SLIGHT = 6-15 cells HPF (0-5); Monocytes 5 % (0-10); Neutrophil 64 % (42-75); Platelet Adequacy Comment Platelets Normal; Poikilocytosis SLIGHT = 6-15 cells HPF (0-5); Polychromasia SLIGHT = 2-3 cells HPF (0-2); Smudge Cells 6.9 %; Total Cell Count 102
[2023-01-02] MEDS: Ketorolac Tromethamine 30 MG/ML VIAL IVP PRN (11:28)
[2023-01-02] MEDS ORDERED: Lorazepam 1 MG TAB PO PRN (14:41)
[2023-01-02] MEDS: Thiamine HCl 200 MG/2 ML VIAL SLOW IVP SCH (15:10)
[2023-01-02] MEDS: Acetaminophen 325 MG TAB PO PRN (17:11)
[2023-01-02 19:41] LABS: Vancomycin, Trough 7.9 ug/mL
[2023-01-02] MEDS: Atorvastatin Calcium 40 MG TAB PO SCH (20:35)
[2023-01-02] MEDS ORDERED: Ketorolac Tromethamine 30 MG/ML VIAL IVP SCH (21:15)
[2023-01-02] MEDS: traMADol HCl 50 MG TAB PO PRN (21:28)
[2023-01-03] MEDS: Piperacillin/Tazobactam 3.375 GM in Sodium Chloride 0.9% 100 ML IVPB SCH ×3 (01:56→18:49)
[2023-01-03] MEDS: Vancomycin 1 GM in Premix Bag 1 BAG IVPB SCH ×2 (04:39→12:39)
[2023-01-03] MEDS: Dexamethasone 4 mg/ml Vial SLOW IVP SCH ×4 (04:40→21:52)
[2023-01-03] MEDS: Acetaminophen 325 MG TAB PO PRN (04:40)
[2023-01-03] MEDS: Levothyroxine Sodium 75 MCG TAB PO SCH (04:42)
[2023-01-03 05:07] LABS: #Monocytes 0.4 thou/uL (0.11-0.59); #Neutrophils 7.8 thou/uL (1.40-6.50); %Basophils 0.1 % (0.0-1.0); %Lymphocytes 6.8 % (21.0-51.0); %Monocytes 4.9 % (0.0-10.0); %Neutrophils 86.2 % (42.0-75.0); Hemoglobin 11.5 g/dL (14.0-18.0); Mean Corpuscular HGB CONC 32.9 g/dL (32.0-36.0); Mean Corpuscular Hemoglobin 33.4 pg (27.0-31.0); Mean Corpuscular Volume 101.7 fl (78.0-98.0); Mean Platelet Volume 10.1 fL (7.4-10.4); Platelet Count 144 10x3/uL (130-400); RBC Distribution Width 13.1 % (11.5-14.5); Red Blood Cell (RBC) Count 3.44 mill/uL (4.70-6.10)
[2023-01-03 05:30] LABS: Anion Gap 9 mmol/L (10-20); BUN (Urea Nitrogen) 11 mg/dL (8.4-25.7); Calc. Creatinine Clearance 116 mL/min (70-130); Calcium 8.5 mg/dL (7.8-10.44); Carbon Dioxide 24 mmol/L (23-31); Chloride 104 mmol/L (98-107); Estimated GFR 113; Glucose 149 mg/dL (80-115); Magnesium 1.7 mg/dL (1.6-2.6); Potassium 3.4 mmol/L (3.5-5.1); Sodium 134 mmol/L (136-145)
[2023-01-03] MEDS: traMADol HCl 50 MG TAB PO PRN ×2 (05:45→15:38)
[2023-01-03 06:32] LABS: ALT (SGPT) 10 U/L (8-55); AST (SGOT) 8 U/L (5-34); Albumin 2.7 g/dL (3.4-4.8); Alkaline Phosphatase 63 U/L (40-110); Anion Gap 12 mmol/L (10-20); BUN (Urea Nitrogen) 11 mg/dL (8.4-25.7); Bilirubin, Total 0.6 mg/dL (0.2-1.2); Calc. Creatinine Clearance 105 mL/min (70-130); Calcium 8.4 mg/dL (7.8-10.44); Carbon Dioxide 23 mmol/L (23-31); Chloride 104 mmol/L (98-107); Estimated GFR 110; Globulin 2.7 g/dL (2.4-3.5); Glucose 181 mg/dL (80-115); Potassium 3.5 mmol/L (3.5-5.1); Protein, Total 5.4 g/dL (5.8-8.1); Sodium 135 mmol/L (136-145)
[2023-01-03] MEDS ORDERED: Potassium Chloride 20 MEQ TAB PO SCH (08:00)
[2023-01-03] MEDS ORDERED: Magnesium 2 GM/50 ML(in water) 2 GM in Premix Bag 1 BAG IVPB SCH (08:00)
[2023-01-03] MEDS: Multivit, Therapeutic 1 TAB PO SCH (08:45)
[2023-01-03] MEDS: Folic Acid 1 MG TAB PO SCH (08:45)
[2023-01-03] MEDS: Nystatin 500,000 UNITS/5 ML UDCUP SSP SCH ×4 (08:45→20:04)
[2023-01-03] MEDS: Famotidine/PF 20 mg/2ml Vial SLOW IVP SCH ×2 (08:46→20:05)
[2023-01-03] MEDS ORDERED: Potassium Bicarbonate/Cit Ac 20 MEQ TAB PO SCH (11:30)
[2023-01-03] MEDS ORDERED: Thiamine 100 MG TAB PO SCH (15:00)
[2023-01-03] MEDS: Thiamine HCl 200 MG/2 ML VIAL SLOW IVP SCH (15:38)
[2023-01-03 19:22] LABS: Vancomycin, Trough 10.2 ug/mL
[2023-01-03] MEDS: VANCOMYCIN (BATCH) 1.25 GM 1.25 GM in Premix Bag 1 BAG IVPB SCH (20:04)
[2023-01-03] MEDS: Atorvastatin Calcium 40 MG TAB PO SCH (20:05)
[2023-01-04] MEDS: Piperacillin/Tazobactam 3.375 GM in Sodium Chloride 0.9% 100 ML IVPB SCH ×3 (01:40→18:24)
[2023-01-04] MEDS: VANCOMYCIN (BATCH) 1.25 GM 1.25 GM in Premix Bag 1 BAG IVPB SCH ×3 (03:21→20:37)
[2023-01-04] MEDS: Dexamethasone 4 mg/ml Vial SLOW IVP SCH ×4 (03:21→22:37)
[2023-01-04] MEDS: Levothyroxine Sodium 75 MCG TAB PO SCH (05:20)
[2023-01-04] MEDS: Multivit, Therapeutic 1 TAB PO SCH (09:25)
[2023-01-04] MEDS: Folic Acid 1 MG TAB PO SCH (09:25)
[2023-01-04] MEDS: Famotidine/PF 20 mg/2ml Vial SLOW IVP SCH ×2 (09:25→20:02)
[2023-01-04] MEDS: Nystatin 500,000 UNITS/5 ML UDCUP SSP SCH ×4 (09:25→20:02)
[2023-01-04] MEDS ORDERED: Potassium Chloride 20 MEQ TAB PO SCH (10:30)
[2023-01-04] MEDS: traMADol HCl 50 MG TAB PO PRN (13:14)
[2023-01-04] MEDS: Lorazepam 0.5 MG TAB PO PRN (13:18)
[2023-01-04] MEDS: Thiamine 100 MG TAB PO SCH (16:09)
[2023-01-04 19:37] LABS: Vancomycin, Trough 16.8 ug/mL
[2023-01-04] MEDS: Atorvastatin Calcium 40 MG TAB PO SCH (20:02)
[2023-01-04] MEDS: QUEtiapine 200 MG TAB PO SCH (20:02)
[2023-01-05] MEDS: Piperacillin/Tazobactam 3.375 GM in Sodium Chloride 0.9% 100 ML IVPB SCH ×3 (02:26→17:16)
[2023-01-05] MEDS: Dexamethasone 4 mg/ml Vial SLOW IVP SCH ×3 (04:55→20:18)
[2023-01-05] MEDS: VANCOMYCIN (BATCH) 1.25 GM 1.25 GM in Premix Bag 1 BAG IVPB SCH (04:55)
[2023-01-05] MEDS: Levothyroxine Sodium 75 MCG TAB PO SCH (05:49)
[2023-01-05] MEDS: Aripiprazole 10 MG TAB PO SCH (08:35)
[2023-01-05] MEDS: Nystatin 500,000 UNITS/5 ML UDCUP SSP SCH ×4 (08:36→20:18)
[2023-01-05] MEDS: Famotidine/PF 20 mg/2ml Vial SLOW IVP SCH ×2 (08:36→20:18)
[2023-01-05] MEDS: Folic Acid 1 MG TAB PO SCH (08:36)
[2023-01-05] MEDS: Multivit, Therapeutic 1 TAB PO SCH (08:36)
[2023-01-05] MEDS: Lorazepam 0.5 MG TAB PO PRN (09:26)
[2023-01-05] MEDS ORDERED: Electrolyte Replacement Protocol FS PRN (15:00)
[2023-01-05] MEDS: Thiamine 100 MG TAB PO SCH (15:53)
[2023-01-05] MEDS: Atorvastatin Calcium 40 MG TAB PO SCH (20:18)
[2023-01-05] MEDS: QUEtiapine 200 MG TAB PO SCH (20:18)
[2023-01-05] MEDS ORDERED: Potassium Chloride 20 MEQ TAB PO SCH (21:30)
[2023-01-05] MEDS ORDERED: Magnesium 2 GM/50 ML(in water) 2 GM in Premix Bag 1 BAG IVPB SCH (21:30)
[2023-01-06] MEDS: Piperacillin/Tazobactam 3.375 GM in Sodium Chloride 0.9% 100 ML IVPB SCH ×3 (02:59→17:55)
[2023-01-06] MEDS: Levothyroxine Sodium 75 MCG TAB PO SCH (05:45)
[2023-01-06] MEDS ORDERED: Potassium Chloride 20 MEQ TAB PO SCH (07:45)
[2023-01-06] MEDS: Famotidine/PF 20 mg/2ml Vial SLOW IVP SCH ×2 (09:05→20:58)
[2023-01-06] MEDS: Nystatin 500,000 UNITS/5 ML UDCUP SSP SCH ×4 (09:05→20:58)
[2023-01-06] MEDS: Dexamethasone 4 mg/ml Vial SLOW IVP SCH ×2 (09:06→20:59)
[2023-01-06] MEDS: Aripiprazole 10 MG TAB PO SCH (09:06)
[2023-01-06] MEDS: Multivit, Therapeutic 1 TAB PO SCH (09:06)
[2023-01-06] MEDS: Folic Acid 1 MG TAB PO SCH (09:06)
[2023-01-06] MEDS: traMADol HCl 50 MG TAB PO PRN ×2 (09:39→15:25)
[2023-01-06] MEDS: Calcium Carbonate 500 MG ChewTAB PO PRN (09:39)
[2023-01-06] MEDS: Thiamine 100 MG TAB PO SCH (15:26)
[2023-01-06] MEDS ORDERED: hydrALAZINE 20 MG/ML VIAL ONE (16:07)
[2023-01-06] MEDS: Atorvastatin Calcium 40 MG TAB PO SCH (20:58)
[2023-01-06] MEDS: QUEtiapine 200 MG TAB PO SCH (20:58)
[2023-01-07] MEDS: Piperacillin/Tazobactam 3.375 GM in Sodium Chloride 0.9% 100 ML IVPB SCH ×3 (03:00→18:02)
[2023-01-07 04:44] LABS: #Monocytes 0.7 thou/uL (0.11-0.59); #Neutrophils 2.7 thou/uL (1.40-6.50); %Eosinophils 0.3 % (0.0-10.0); %Lymphocytes 15.1 % (21.0-51.0); %Monocytes 17.1 % (0.0-10.0); Hematocrit 38.7 % (42.0-52.0); Mean Corpuscular HGB CONC 33.6 g/dL (32.0-36.0); Mean Corpuscular Hemoglobin 33.3 pg (27.0-31.0); Mean Corpuscular Volume 99.2 fl (78.0-98.0); Mean Platelet Volume 10.4 fL (7.4-10.4); Platelet Count 125 10x3/uL (130-400); RBC Distribution Width 12.8 % (11.5-14.5)
[2023-01-07 04:56] LABS: INR-International Normal Ratio 1.1; PTT 26.6 sec (22.9-36.1); Prothrombin Time 14.7 sec (12.0-14.7)
[2023-01-07] MEDS: Levothyroxine Sodium 75 MCG TAB PO SCH (06:50)
[2023-01-07 07:13] LABS: Anion Gap 12 mmol/L (10-20); BUN (Urea Nitrogen) 11 mg/dL (8.4-25.7); Calc. Creatinine Clearance 116 mL/min (70-130); Calcium 8.5 mg/dL (7.8-10.44); Carbon Dioxide 24 mmol/L (23-31); Chloride 102 mmol/L (98-107); Estimated GFR 113; Glucose 131 mg/dL (80-115); Potassium 4.3 mmol/L (3.5-5.1); Sodium 134 mmol/L (136-145)
[2023-01-07] MEDS ORDERED: fentaNYL 50 mcg/mL 1 mL Vial ONE (09:12)
[2023-01-07] MEDS ORDERED: Midazolam HCl 2 mg/2 ml Vial ONE (09:12)
[2023-01-07] MEDS ORDERED: Sodium Bicarbonate 2.5 MEQ/5 ML VIAL ONE (09:13)
[2023-01-07] MEDS: Dexamethasone 4 mg/ml Vial SLOW IVP SCH ×2 (09:19→20:43)
[2023-01-07] MEDS: Folic Acid 1 MG TAB PO SCH (09:20)
[2023-01-07] MEDS: Multivit, Therapeutic 1 TAB PO SCH (09:20)
[2023-01-07] MEDS: Famotidine/PF 20 mg/2ml Vial SLOW IVP SCH (09:20)
[2023-01-07] MEDS: Aripiprazole 10 MG TAB PO SCH (09:20)
[2023-01-07] MEDS: Nystatin 500,000 UNITS/5 ML UDCUP SSP SCH ×4 (09:21→20:43)
[2023-01-07] MEDS: traMADol HCl 50 MG TAB PO PRN ×2 (11:55→18:07)
[2023-01-07] MEDS: Thiamine 100 MG TAB PO SCH (15:21)
[2023-01-07] MEDS: QUEtiapine 200 MG TAB PO SCH (20:43)
[2023-01-07] MEDS: Atorvastatin Calcium 40 MG TAB PO SCH (20:43)
[2023-01-07] MEDS: Famotidine 20 MG TAB PO SCH (20:43)
[2023-01-08] MEDS: traMADol HCl 50 MG TAB PO PRN ×4 (00:18→22:47)
[2023-01-08] MEDS: Piperacillin/Tazobactam 3.375 GM in Sodium Chloride 0.9% 100 ML IVPB SCH ×2 (01:05→10:48)
[2023-01-08] MEDS: Levothyroxine Sodium 75 MCG TAB PO SCH (05:17)
[2023-01-08] MEDS: Calcium Carbonate 500 MG ChewTAB PO PRN (09:15)
[2023-01-08] MEDS: Folic Acid 1 MG TAB PO SCH (09:16)
[2023-01-08] MEDS: Nystatin 500,000 UNITS/5 ML UDCUP SSP SCH ×4 (09:16→21:39)
[2023-01-08] MEDS: Aripiprazole 10 MG TAB PO SCH (09:16)
[2023-01-08] MEDS: Multivit, Therapeutic 1 TAB PO SCH (09:17)
[2023-01-08] MEDS: Famotidine 20 MG TAB PO SCH ×2 (09:17→21:39)
[2023-01-08] MEDS: Dexamethasone 4 mg/ml Vial SLOW IVP SCH ×2 (10:47→21:39)
[2023-01-08] MEDS ORDERED: Magnesium 2 GM/50 ML(in water) 2 GM in Premix Bag 1 BAG IVPB SCH (11:00)
[2023-01-08] MEDS ORDERED: Bisacodyl 10 MG SUPP PR SCH (14:15)
[2023-01-08] MEDS ORDERED: Senokot S 8.6-50 MG TAB PO SCH (15:30)
[2023-01-08] MEDS: Thiamine 100 MG TAB PO SCH (17:02)
[2023-01-08] MEDS: Acetaminophen 325 MG TAB PO PRN ×2 (17:02→22:46)
[2023-01-08] MEDS: QUEtiapine 200 MG TAB PO SCH (21:39)
[2023-01-08] MEDS: Atorvastatin Calcium 40 MG TAB PO SCH (21:39)
[2023-01-09 05:10] LABS: Magnesium 2.1 mg/dL (1.6-2.6)
[2023-01-09] MEDS: Levothyroxine Sodium 75 MCG TAB PO SCH (06:41)
[2023-01-09] MEDS ORDERED: Senokot S 8.6-50 MG TAB PO SCH (09:00)
[2023-01-09] MEDS: Nystatin 500,000 UNITS/5 ML UDCUP SSP SCH ×2 (10:08→13:39)
[2023-01-09] MEDS: Multivit, Therapeutic 1 TAB PO SCH (10:09)
[2023-01-09] MEDS: Folic Acid 1 MG TAB PO SCH (10:09)
[2023-01-09] MEDS: Aripiprazole 10 MG TAB PO SCH (10:09)
[2023-01-09] MEDS: Dexamethasone 4 mg/ml Vial SLOW IVP SCH (10:09)
[2023-01-09] MEDS: Famotidine 20 MG TAB PO SCH (10:09)
[2023-01-09] MEDS: traMADol HCl 50 MG TAB PO PRN ×2 (10:27→15:44)
[2023-01-09] MEDS: Acetaminophen 325 MG TAB PO PRN (13:38)
[2023-01-09] MEDS: Thiamine 100 MG TAB PO SCH (15:44)
[2023-01-09 16:32] VITALS: BP 115/88; TEMP 98.3
== END 2023-01-09 16:58 | disposition home or self-care (01) | DRG 180 ==
LOC: SUATTDRO 12:33 → ERS 12:33 → ERHOLD 14:32 → 2SE 20:35
PROVIDERS: ADMIT Internal Medicine; ATTEND Family Medicine
PROC: 4A00X4Z Measurement of Central Nervous Electrical Activity, External Approach (ICD-10-PCS; principal; 2023-01-01)
PROC: 0GB33ZX Excision of Right Adrenal Gland, Percutaneous Approach, Diagnostic (ICD-10-PCS; 2023-01-01)
PROC: 4A033R1 Measurement of Arterial Saturation, Peripheral, Percutaneous Approach (ICD-10-PCS; 2023-01-01)
DX: C34.90 Malignant neoplasm of unspecified part of unspecified bronchus or lung (principal); E43 Unspecified severe protein-calorie malnutrition; G93.6 Cerebral edema; J69.0 Pneumonitis due to inhalation of food and vomit; I61.9 Nontraumatic intracerebral hemorrhage, unspecified; C79.31 Secondary malignant neoplasm of brain; E51.2 Wernicke's encephalopathy; Z68.1 Body mass index [BMI] 19.9 or less, adult; C79.89 Secondary malignant neoplasm of other specified sites; G93.40 Encephalopathy, unspecified; C25.9 Malignant neoplasm of pancreas, unspecified; Z66 Do not resuscitate; Z51.5 Encounter for palliative care; R41.82 Altered mental status, unspecified; F39 Unspecified mood [affective] disorder; G93.9 Disorder of brain, unspecified; E03.9 Hypothyroidism, unspecified; F17.210 Nicotine dependence, cigarettes, uncomplicated; F10.10 Alcohol abuse, uncomplicated; R63.4 Abnormal weight loss; E27.8 Other specified disorders of adrenal gland; K86.89 Other specified diseases of pancreas; R91.1 Solitary pulmonary nodule; F15.10 Other stimulant abuse, uncomplicated; R53.81 Other malaise; Z90.2 Acquired absence of lung [part of]; Z98.890 Other specified postprocedural states; Z79.899 Other long term (current) drug therapy; Z86.73 Personal history of transient ischemic attack (TIA), and cerebral infarction without residual deficits
CPT/HCPCS: 36415; 36600; 50200; 70450; 70553; 71045; 71260; 74177; 74230; 77012; 77014; 77280; 77290; 77307; 77334; 77412; 80048; 80053; 80061; 80178; 80202; 80306; 80307; 81001; 82140; 82805; 83036; 83605; 83690; 83735; 83880; 84100; 84443; 84484; 85025; 85610; 85730; 86301; 87040; 87077; 87149; 88305; 88333; 88334; 88341; 88342; 93005; 93306; 95711; 95819; 95957; 96361; 96374; 96375; J0360; J1100; J1885; J2250; J2543; J3010; J3370; J3370-JW; J3411; J3475; J3490; J7030; J7050; J7120; Q9967; S0028

== ENCOUNTER 2023-01-28 12:30 | Outpatient (CLI) | payer OTHER | END 2023-01-28 12:31 | disposition home or self-care (01) | LOC: PET 12:30 | PROVIDERS: ATTEND Internal Medicine | DX: C34.82 Malignant neoplasm of overlapping sites of left bronchus and lung (principal); C79.31 Secondary malignant neoplasm of brain; M79.9 Soft tissue disorder, unspecified; R59.0 Localized enlarged lymph nodes | CPT/HCPCS: 78815; A9552 ==

== ENCOUNTER 2023-02-06 10:11 | Inpatient (IN) | payer OTHER ==
[2023-02-06] MEDS ORDERED: Cefepime 2 GM VIAL ONE (10:45)
[2023-02-06] MEDS ORDERED: Vancomycin 1 GM/200 ML (FROZEN) BAG ONE (10:45)
[2023-02-06] MEDS ORDERED: Sodium Chloride 0.9% 0 ML ONE (10:45)
[2023-02-06 10:53] LABS: Hematocrit 35.4 % (42.0-52.0); Hemoglobin 11.7 g/dL (14.0-18.0); Mean Corpuscular HGB CONC 33.1 g/dL (32.0-36.0); Mean Corpuscular Hemoglobin 32.9 pg (27.0-31.0); Mean Corpuscular Volume 99.4 fl (78.0-98.0); Mean Platelet Volume 10.9 fL (7.4-10.4); RBC Distribution Width 14.7 % (11.5-14.5); Red Blood Cell (RBC) Count 3.56 mill/uL (4.70-6.10); White Blood Cell (WBC) Count 1.3 10x3/uL (4.8-10.8)
[2023-02-06 10:58] LABS: Manual Diff?? YES; Platelet Count 69 10x3/uL (130-400)
[2023-02-06 11:00] LABS: Delete Auto Diff?? YES
[2023-02-06 11:21] LABS: Acetaminophen 12 mcg/mL (10.0-30.0); Alcohol Less than 10.0 mg/dL (Less than 10); Lipase 14 U/L (8-78); Salicylate Less than 8.0 mg/dL (15.0-30.0)
[2023-02-06 11:24] LABS: ALT (SGPT) 27 U/L (8-55); AST (SGOT) 11 U/L (5-34); Alkaline Phosphatase 128 U/L (40-110); Anion Gap 16 mmol/L (10-20); BUN (Urea Nitrogen) 35 mg/dL (8.4-25.7); Bilirubin, Total 1.9 mg/dL (0.2-1.2); Calc. Creatinine Clearance 0 mL/min (70-130); Calcium 9.2 mg/dL (7.8-10.44); Carbon Dioxide 22 mmol/L (23-31); Chloride 105 mmol/L (98-107); Estimated GFR 104; Globulin 3.1 g/dL (2.4-3.5); Glucose 125 mg/dL (80-115); Potassium 4.4 mmol/L (3.5-5.1); Protein, Total 6.1 g/dL (5.8-8.1); Sodium 139 mmol/L (136-145)
[2023-02-06 11:32] LABS: Bacteria/HPF None Seen HPF (None Seen); Bilirubin Negative (Negative); Blood, Urine Trace (Negative); CAUTI Indications for Culture Alt mental st,lethar; Clarity Clear (Clear); Glucose, Urine (Dipstick) 30 mg/dL (Negative); Ketone, Urine Negative (Negative); Leukocyte Negative Leu/uL (Negative); Nitrite Negative (Negative); Protein, Urine (Dipstick) 50 mg/dL (Neg-Trace); Specific Gravity, Urine 1.019 (1.002-1.036); Squamous Epithelial None Seen HPF (0-3); Urobilinogen 6 mg/dL (Less than 2); pH, Urine 6.5 (5.0-9.0)
[2023-02-06 11:57] LABS: Band 27 % (5-11); Large Platelets 7.1 % (0-5); Lymphocytes 12 % (21-51); Metamyelocyte 4 % (0-0); Monocytes 5 % (0-10); Neutrophil 50 % (42-75); Nucleated RBC (Manual Ct) 1 % (0); Platelet Adequacy Comment Platelets Decreased; Polychromasia SLIGHT = 2-3 cells HPF (0-2); Reactive Lymphocytes 1 % (0-10); Total Cell Count 113; Toxic Granulation SLIGHT; Vacuoles SLIGHT
[2023-02-06 12:10] LABS: Urine Culture Reflex No No
[2023-02-06 12:18] LABS: Amphetamine Not Detected (NotDetected); Barbiturates Screen Not Detected (NotDetected); Benzodiazepine Screen Not Detected (NotDetected); Cocaine Metabolite Screen Not Detected (NotDetected); Methadone Not Detected (NotDetected); Methamphetamine Not Detected (NotDetected); Opiate Screen Detected (NotDetected); Oxycodone Screen Not Detected (NotDetected); Phencyclidine (PCP) Not Detected (NotDetected); THC/Cannabinoid Screen Detected (NotDetected); Tricyclic Screen Detected (NotDetected)
[2023-02-06 14:06] LABS: Lactic Acid 5.5 mmol/L (0.5-2.2)
[2023-02-06] MEDS ORDERED: hydrOXYzine 25 MG TAB PO PRN (14:47)
[2023-02-06] MEDS ORDERED: Acetaminophen 325 MG TAB PO PRN (14:52)
[2023-02-06] MEDS ORDERED: Lactated Ringer's 1,000 ML IV SCH (15:00)
[2023-02-06] MEDS ORDERED: Prochlorperazine Maleate 5 MG TAB PO PRN (15:02)
[2023-02-06 17:31] VITALS: BMI 15.8
[2023-02-06] MEDS ORDERED: Dexamethasone 4 MG TAB PO SCH (21:00)
[2023-02-06] MEDS ORDERED: Acetaminophen 650 MG Suppository PR SCH (21:15)
[2023-02-06 21:59] LABS: Magnesium 1.8 mg/dL (1.6-2.6)
[2023-02-06] MEDS ORDERED: Dexamethasone 4 mg/ml Vial SLOW IVP SCH (22:00)
[2023-02-06] MEDS: QUEtiapine 200 MG TAB PO SCH (23:47)
[2023-02-06] MEDS: Dexamethasone 4 mg/ml Vial SLOW IVP SCH (23:49)
[2023-02-07] MEDS: Lactated Ringer's 1,000 ML IV SCH ×5 (00:14→19:13)
[2023-02-07] MEDS: Cefepime 2 GM in Sodium Chloride 0.9% 100 ML IVPB SCH ×2 (00:15→11:53)
[2023-02-07] MEDS ORDERED: Acetaminophen 650 MG Suppository PR PRN ×3 (01:00→23:59)
[2023-02-07] MEDS: Vancomycin HCl 750 MG in Sodium Chloride 0.9% 250 ML 250 ML IVPB SCH ×2 (01:02→13:18)
[2023-02-07 05:11] LABS: Hematocrit 28.8 % (42.0-52.0); Hemoglobin 9.6 g/dL (14.0-18.0); Mean Corpuscular HGB CONC 33.3 g/dL (32.0-36.0); Mean Corpuscular Hemoglobin 33.9 pg (27.0-31.0); Mean Corpuscular Volume 101.8 fl (78.0-98.0); Mean Platelet Volume 10.4 fL (7.4-10.4); RBC Distribution Width 14.8 % (11.5-14.5); Red Blood Cell (RBC) Count 2.83 mill/uL (4.70-6.10); White Blood Cell (WBC) Count 2.8 10x3/uL (4.8-10.8)
[2023-02-07 05:23] LABS: Delete Auto Diff?? YES; Manual Diff?? YES; Platelet Count 43 10x3/uL (130-400)
[2023-02-07 05:38] LABS: Lactic Acid 1.9 mmol/L (0.5-2.2)
[2023-02-07 05:39] LABS: Anion Gap 10 mmol/L (10-20); BUN (Urea Nitrogen) 18 mg/dL (8.4-25.7); Calc. Creatinine Clearance 116 mL/min (70-130); Calcium 9.2 mg/dL (7.8-10.44); Carbon Dioxide 23 mmol/L (23-31); Chloride 107 mmol/L (98-107); Estimated GFR 116; Glucose 133 mg/dL (80-115); Sodium 136 mmol/L (136-145)
[2023-02-07 06:03] LABS: Band 33 % (5-11); CellaVision Operator ID lab.abc; Large Platelets 3.7 % (0-5); Lymphocytes 1 % (21-51); Metamyelocyte 1 % (0-0); Monocytes 7 % (0-10); Neutrophil 58 % (42-75); Platelet Adequacy Comment Platelets Decreased; RBC Morphology Within Normal Limits; Smudge Cells 16.7 %; Total Cell Count 108
[2023-02-07] MEDS: Levothyroxine Sodium 75 MCG TAB PO SCH (06:05)
[2023-02-07] MEDS: HYDROcodone/Acetaminophen 5/325 mg Tablet PO PRN ×2 (06:12→20:51)
[2023-02-07] MEDS ORDERED: FLU VACC QS2023-24(6MOS UP)/PF 60 MCG/0.5 ML SYRINGE IM ONE (09:00)
[2023-02-07] MEDS: Dexamethasone 4 mg/ml Vial SLOW IVP SCH ×3 (09:49→20:49)
[2023-02-07] MEDS: Folic Acid 1 MG TAB PO SCH (09:49)
[2023-02-07] MEDS: Famotidine 20 MG TAB PO SCH (09:49)
[2023-02-07] MEDS: OLANZapine 5 MG TAB PO SCH (09:49)
[2023-02-07] MEDS: QUEtiapine 200 MG TAB PO SCH (20:49)
[2023-02-07 23:23] LABS: Vancomycin, Trough 4.4 ug/mL
[2023-02-08] MEDS: Cefepime 2 GM in Sodium Chloride 0.9% 100 ML IVPB SCH ×3 (00:12→22:21)
[2023-02-08] MEDS: Vancomycin HCl 750 MG in Sodium Chloride 0.9% 250 ML 250 ML IVPB SCH (00:22)
[2023-02-08] MEDS: Vancomycin 1 GM in Premix 1 BAG IVPB SCH ×3 (02:04→16:24)
[2023-02-08] MEDS: Lactated Ringer's 1,000 ML IV SCH ×2 (06:35→09:56)
[2023-02-08] MEDS: Levothyroxine Sodium 75 MCG TAB PO SCH (06:35)
[2023-02-08 06:40] LABS: #Monocytes 0.3 thou/uL (0.11-0.59); #Neutrophils 3.1 thou/uL (1.40-6.50); %Basophils 0.6 % (0.0-1.0); %Lymphocytes 2.8 % (21.0-51.0); %Neutrophils 87.5 % (42.0-75.0); Hematocrit 28.7 % (42.0-52.0); Hemoglobin 9.5 g/dL (14.0-18.0); Mean Corpuscular HGB CONC 33.1 g/dL (32.0-36.0); Mean Corpuscular Hemoglobin 32.5 pg (27.0-31.0); Mean Corpuscular Volume 98.3 fl (78.0-98.0); Mean Platelet Volume 11.1 fL (7.4-10.4); RBC Distribution Width 14.6 % (11.5-14.5); Red Blood Cell (RBC) Count 2.92 mill/uL (4.70-6.10); White Blood Cell (WBC) Count 3.5 10x3/uL (4.8-10.8)
[2023-02-08 07:05] LABS: Anion Gap 12 mmol/L (10-20); BUN (Urea Nitrogen) 17 mg/dL (8.4-25.7); Calc. Creatinine Clearance 124 mL/min (70-130); Calcium 9.2 mg/dL (7.8-10.44); Carbon Dioxide 21 mmol/L (23-31); Chloride 103 mmol/L (98-107); Estimated GFR 118; Glucose 140 mg/dL (80-115); Potassium 4.2 mmol/L (3.5-5.1); Sodium 132 mmol/L (136-145)
[2023-02-08 07:37] LABS: Platelet Count 47 10x3/uL (130-400)
[2023-02-08] MEDS: Dexamethasone 4 mg/ml Vial SLOW IVP SCH ×2 (08:51→15:56)
[2023-02-08] MEDS: OLANZapine 5 MG TAB PO SCH (08:51)
[2023-02-08] MEDS: Famotidine 20 MG TAB PO SCH (08:51)
[2023-02-08] MEDS: Folic Acid 1 MG TAB PO SCH (08:51)
[2023-02-08 09:36] LABS: Ovalocytes SLIGHT = 2-5 cells (100X) (0-1/hpf); Platelet Adequacy Comment Significant decrease
[2023-02-08] MEDS ORDERED: Sodium Chloride 0.9% 0 ML ONE (11:16)
[2023-02-08 11:49] LABS: Manual Diff?? YES
[2023-02-08 12:13] LABS: Band 6 % (5-11); Lymphocytes 5 % (21-51); Monocytes 7 % (0-10); Neutrophil 82 % (42-75)
[2023-02-08] MEDS: HYDROcodone/Acetaminophen 5/325 mg Tablet PO PRN ×2 (15:56→22:29)
[2023-02-08 16:45] LABS: Troponin I Less than 0.010 ng/mL (< 0.028)
[2023-02-08] MEDS: Lidocaine 2% Viscous Solution 10 ML, Aluminum & Magnesium Hydroxide 30 ML SSW SCH ×2 (17:14→17:17)
[2023-02-08] MEDS: QUEtiapine 200 MG TAB PO SCH (22:28)
[2023-02-09 01:50] LABS: Vancomycin, Trough 13.3 ug/mL
[2023-02-09] MEDS: Vancomycin 1 GM in Premix 1 BAG IVPB SCH ×3 (02:26→17:42)
[2023-02-09] MEDS ORDERED: Vancomycin 1 GM in Premix 1 BAG IVPB SCH (02:30)
[2023-02-09] MEDS: Levothyroxine Sodium 75 MCG TAB PO SCH (05:17)
[2023-02-09] MEDS: HYDROcodone/Acetaminophen 5/325 mg Tablet PO PRN ×2 (05:17→17:53)
[2023-02-09 06:44] LABS: Hematocrit 30.2 % (42.0-52.0); Hemoglobin 10.3 g/dL (14.0-18.0); Mean Corpuscular HGB CONC 34.1 g/dL (32.0-36.0); Mean Corpuscular Hemoglobin 33.4 pg (27.0-31.0); Mean Corpuscular Volume 98.1 fl (78.0-98.0); Mean Platelet Volume 12.1 fL (7.4-10.4); RBC Distribution Width 14.3 % (11.5-14.5); Red Blood Cell (RBC) Count 3.08 mill/uL (4.70-6.10); White Blood Cell (WBC) Count 3.8 10x3/uL (4.8-10.8)
[2023-02-09 06:46] LABS: Delete Auto Diff?? YES; Manual Diff?? YES; Platelet Count 35 10x3/uL (130-400)
[2023-02-09] MEDS: Lactated Ringer's 1,000 ML IV SCH ×2 (07:17→09:51)
[2023-02-09 07:25] LABS: Band 13 % (5-11); CellaVision Operator ID LAB.GE; Lymphocytes 5 % (21-51); Metamyelocyte 1 % (0-0); Monocytes 9 % (0-10); Neutrophil 71 % (42-75); Platelet Adequacy Comment Significant decrease; Polychromasia SLIGHT = 2-3 cells HPF (0-2); Total Cell Count 101
[2023-02-09] MEDS ORDERED: Dexamethasone 4 MG TAB PO SCH (08:00)
[2023-02-09] MEDS ORDERED: Pantoprazole 40 MG VIAL IVP SCH (09:00)
[2023-02-09] MEDS: OLANZapine 5 MG TAB PO SCH (09:54)
[2023-02-09] MEDS: Folic Acid 1 MG TAB PO SCH (09:54)
[2023-02-09] MEDS: Cefepime 2 GM in Sodium Chloride 0.9% 100 ML IVPB SCH ×2 (11:58→23:21)
[2023-02-09] MEDS: Morphine 2 MG/ML VIAL SLOW IVP PRN ×2 (16:05→22:26)
[2023-02-09] MEDS: Dexamethasone 4 MG TAB PO SCH (22:26)
[2023-02-09] MEDS: QUEtiapine 200 MG TAB PO SCH (22:26)
[2023-02-10] MEDS ORDERED: Vancomycin (BATCH) 1.25 GM in Premix 1 BAG IVPB SCH (02:15)
[2023-02-10 02:24] LABS: Hematocrit 27.3 % (42.0-52.0); Hemoglobin 9.2 g/dL (14.0-18.0); Mean Corpuscular HGB CONC 33.7 g/dL (32.0-36.0); Mean Corpuscular Hemoglobin 33.5 pg (27.0-31.0); Mean Corpuscular Volume 99.3 fl (78.0-98.0); Mean Platelet Volume 11.9 fL (7.4-10.4); RBC Distribution Width 14.4 % (11.5-14.5); Red Blood Cell (RBC) Count 2.75 mill/uL (4.70-6.10)
[2023-02-10] MEDS: Vancomycin 1 GM in Premix 1 BAG IVPB SCH (02:40)
[2023-02-10 02:44] LABS: Delete Auto Diff?? YES; Manual Diff?? YES; Platelet Count 30 10x3/uL (130-400)
[2023-02-10 03:04] LABS: Anisocytosis SLIGHT = 6-15 cells HPF (0-5); Band 5 % (5-11); CellaVision Operator ID LAB.JMM; Lymphocytes 1 % (21-51); Macrocytosis SLIGHT = 6-15 cells HPF (0-5); Metamyelocyte 1 % (0-0); Monocytes 12 % (0-10); Neutrophil 81 % (42-75); Platelet Adequacy Comment Significant decrease; Polychromasia SLIGHT = 2-3 cells HPF (0-2); Total Cell Count 100
[2023-02-10] MEDS: Morphine 2 MG/ML VIAL SLOW IVP PRN ×2 (03:51→21:17)
[2023-02-10] MEDS: Lactated Ringer's 1,000 ML IV SCH ×2 (04:31→21:00)
[2023-02-10] MEDS: Levothyroxine Sodium 75 MCG TAB PO SCH (05:38)
[2023-02-10] MEDS: Dexamethasone 4 MG TAB PO SCH ×3 (10:00→21:26)
[2023-02-10] MEDS: OLANZapine 5 MG TAB PO SCH (10:00)
[2023-02-10] MEDS: Folic Acid 1 MG TAB PO SCH (10:00)
[2023-02-10] MEDS: Cefepime 2 GM in Sodium Chloride 0.9% 100 ML IVPB SCH (12:24)
[2023-02-10] MEDS: Vancomycin (BATCH) 1.25 GM in Premix 1 BAG IVPB SCH ×3 (13:40→22:23)
[2023-02-10] MEDS ORDERED: Docusate 100 MG CAP PO PRN (14:15)
[2023-02-10] MEDS ORDERED: Polyethylene Glycol 3350 17 GM Packet PO PRN (14:16)
[2023-02-10] MEDS ORDERED: Aluminum & Magnesium Hydroxide 60 ML, diphenhydrAMINE 150 MG, Lidocaine 2% Viscous Solu... SSW PRN (15:32)
[2023-02-10] MEDS ORDERED: Furosemide 20 MG/2 ML VIAL SLOW IVP SCH (17:30)
[2023-02-10] MEDS: Dronabinol 2.5 MG CAP PO SCH (18:33)
[2023-02-10] MEDS: QUEtiapine 200 MG TAB PO SCH (21:26)
[2023-02-11] MEDS: Cefepime 2 GM in Sodium Chloride 0.9% 100 ML IVPB SCH ×2 (00:31→11:04)
[2023-02-11] MEDS: Vancomycin (BATCH) 1.25 GM in Premix 1 BAG IVPB SCH ×3 (05:24→21:35)
[2023-02-11] MEDS: Levothyroxine Sodium 75 MCG TAB PO SCH (05:24)
[2023-02-11 05:57] LABS: Hematocrit 30.3 % (42.0-52.0); Hemoglobin 10.2 g/dL (14.0-18.0); Mean Corpuscular HGB CONC 33.7 g/dL (32.0-36.0); Mean Corpuscular Volume 98.1 fl (78.0-98.0); Mean Platelet Volume 12.4 fL (7.4-10.4); RBC Distribution Width 14.3 % (11.5-14.5); Red Blood Cell (RBC) Count 3.09 mill/uL (4.70-6.10); White Blood Cell (WBC) Count 2.3 10x3/uL (4.8-10.8)
[2023-02-11 06:05] LABS: Delete Auto Diff?? YES; Manual Diff?? YES; Platelet Count 35 10x3/uL (130-400)
[2023-02-11 06:26] LABS: Anion Gap 15 mmol/L (10-20); BUN (Urea Nitrogen) 17 mg/dL (8.4-25.7); Calc. Creatinine Clearance 132 mL/min (70-130); Carbon Dioxide 22 mmol/L (23-31); Chloride 102 mmol/L (98-107); Estimated GFR 121; Glucose 142 mg/dL (80-115); Potassium 4.1 mmol/L (3.5-5.1); Sodium 135 mmol/L (136-145); Vancomycin, Trough 17.7 ug/mL
[2023-02-11 06:35] LABS: Band 2 % (5-11); CellaVision Operator ID lab.abc; Lymphocytes 3 % (21-51); Monocytes 5 % (0-10); Neutrophil 90 % (42-75); Platelet Adequacy Comment Platelets Decreased; RBC Morphology Within Normal Limits; Total Cell Count 101
[2023-02-11] MEDS: HYDROcodone/Acetaminophen 5/325 mg Tablet PO PRN ×2 (07:51→21:35)
[2023-02-11] MEDS: Dexamethasone 4 MG TAB PO SCH ×3 (08:01→21:34)
[2023-02-11] MEDS: OLANZapine 5 MG TAB PO SCH (08:01)
[2023-02-11] MEDS: Folic Acid 1 MG TAB PO SCH (08:01)
[2023-02-11] MEDS: Dronabinol 2.5 MG CAP PO SCH ×2 (09:30→17:45)
[2023-02-11] MEDS: Aluminum & Magnesium Hydroxide 60 ML, diphenhydrAMINE 150 MG, Lidocaine 2% Viscous Solu... SSW SCH ×3 (09:32→17:47)
[2023-02-11] MEDS: Ondansetron PF 4 MG/2 ML Vial IVP PRN (11:20)
[2023-02-11] MEDS ORDERED: Scopolamine 1 mg/72 hour Patch TD SCH (11:30)
[2023-02-11] MEDS: Morphine 2 MG/ML VIAL SLOW IVP PRN (14:44)
[2023-02-11] MEDS: Lactated Ringer's 1,000 ML IV SCH (18:37)
[2023-02-12] MEDS: Lactated Ringer's 1,000 ML IV SCH (01:00)
[2023-02-12] MEDS: Vancomycin (BATCH) 1.25 GM in Premix 1 BAG IVPB SCH ×4 (01:00→17:43)
[2023-02-12] MEDS: Aluminum & Magnesium Hydroxide 60 ML, diphenhydrAMINE 150 MG, Lidocaine 2% Viscous Solu... SSW SCH ×7 (01:01→23:12)
[2023-02-12] MEDS: Cefepime 2 GM in Sodium Chloride 0.9% 100 ML IVPB SCH ×3 (01:01→23:11)
[2023-02-12] MEDS: Levothyroxine Sodium 75 MCG TAB PO SCH (05:01)
[2023-02-12] MEDS: HYDROcodone/Acetaminophen 5/325 mg Tablet PO PRN ×2 (05:02→21:34)
[2023-02-12 05:36] LABS: Hematocrit 29.1 % (42.0-52.0); Hemoglobin 9.8 g/dL (14.0-18.0); Mean Corpuscular HGB CONC 33.7 g/dL (32.0-36.0); Mean Corpuscular Hemoglobin 33.2 pg (27.0-31.0); Mean Corpuscular Volume 98.6 fl (78.0-98.0); Mean Platelet Volume 11.9 fL (7.4-10.4); RBC Distribution Width 14.6 % (11.5-14.5); Red Blood Cell (RBC) Count 2.95 mill/uL (4.70-6.10); White Blood Cell (WBC) Count 5.7 10x3/uL (4.8-10.8)
[2023-02-12 05:55] LABS: Delete Auto Diff?? YES; Manual Diff?? YES; Platelet Count 59 10x3/uL (130-400)
[2023-02-12 05:57] LABS: Vancomycin, Trough 24.1 ug/mL
[2023-02-12 06:43] LABS: Band 19 % (5-11); CellaVision Operator ID LAB.JMM; Macrocytosis SLIGHT = 6-15 cells HPF (0-5); Monocytes 5 % (0-10); Neutrophil 76 % (42-75); Platelet Adequacy Comment Platelets Decreased; Polychromasia SLIGHT = 2-3 cells HPF (0-2); Total Cell Count 101
[2023-02-12] MEDS: Folic Acid 1 MG TAB PO SCH (08:20)
[2023-02-12] MEDS: Dronabinol 2.5 MG CAP PO SCH ×2 (08:20→17:41)
[2023-02-12] MEDS: Dexamethasone 4 MG TAB PO SCH ×3 (08:20→21:35)
[2023-02-12] MEDS: OLANZapine 5 MG TAB PO SCH (08:20)
[2023-02-12] MEDS: Morphine 2 MG/ML VIAL SLOW IVP PRN (10:56)
[2023-02-12] MEDS: D5W-AA 4.25% with LYTES 1,000 ML IV SCH (13:56)
[2023-02-13 00:55] LABS: Vancomycin, Trough 21.2 ug/mL
[2023-02-13] MEDS: Vancomycin (BATCH) 1.25 GM in Premix 1 BAG IVPB SCH ×3 (01:51→17:33)
[2023-02-13] MEDS: Aluminum & Magnesium Hydroxide 60 ML, diphenhydrAMINE 150 MG, Lidocaine 2% Viscous Solu... SSW SCH ×6 (01:52→22:58)
[2023-02-13] MEDS: Morphine 2 MG/ML VIAL SLOW IVP PRN ×4 (01:54→21:36)
[2023-02-13] MEDS: HYDROcodone/Acetaminophen 5/325 mg Tablet PO PRN (04:30)
[2023-02-13 04:40] LABS: Hematocrit 28.6 % (42.0-52.0); Hemoglobin 9.7 g/dL (14.0-18.0); Mean Corpuscular HGB CONC 33.9 g/dL (32.0-36.0); Mean Corpuscular Hemoglobin 32.8 pg (27.0-31.0); Mean Corpuscular Volume 96.6 fl (78.0-98.0); Mean Platelet Volume 11.4 fL (7.4-10.4); Red Blood Cell (RBC) Count 2.96 mill/uL (4.70-6.10); White Blood Cell (WBC) Count 8.9 10x3/uL (4.8-10.8)
[2023-02-13 04:43] LABS: Platelet Count 66 10x3/uL (130-400)
[2023-02-13 04:44] LABS: Delete Auto Diff?? YES; Manual Diff?? YES
[2023-02-13 05:02] LABS: Anion Gap 12 mmol/L (10-20); BUN (Urea Nitrogen) 22 mg/dL (8.4-25.7); Calc. Creatinine Clearance 124 mL/min (70-130); Calcium 8.3 mg/dL (7.8-10.44); Carbon Dioxide 24 mmol/L (23-31); Chloride 100 mmol/L (98-107); Estimated GFR 118; Glucose 201 mg/dL (80-115); Magnesium 1.9 mg/dL (1.6-2.6); Phosphorus 2.1 mg/dL (2.3-4.7); Potassium 4.2 mmol/L (3.5-5.1); Sodium 132 mmol/L (136-145)
[2023-02-13 05:49] LABS: Anisocytosis SLIGHT = 6-15 cells HPF (0-5); Band 4 % (5-11); CellaVision Operator ID lab.sh2; Monocytes 2 % (0-10); Neutrophil 94 % (42-75); Platelet Adequacy Comment Platelets Decreased; Polychromasia MODERATE = 3-4 cells HPF (0-2); Smudge Cells 5.9 %; Total Cell Count 101; Toxic Granulation SLIGHT
[2023-02-13] MEDS: Levothyroxine Sodium 75 MCG TAB PO SCH (05:53)
[2023-02-13] MEDS: D5W-AA 4.25% with LYTES 1,000 ML IV SCH (07:44)
[2023-02-13] MEDS ORDERED: Electrolyte Replacement Protocol 1 EACH FS SCH (08:30)
[2023-02-13] MEDS ORDERED: Potassium Phosphate 30 MMOL in Sodium Chloride 0.9% 250 ML 250 ML IVPB SCH (08:30)
[2023-02-13] MEDS: Folic Acid 1 MG TAB PO SCH ×2 (09:11→10:38)
[2023-02-13] MEDS: OLANZapine 5 MG TAB PO SCH ×2 (09:11→10:38)
[2023-02-13] MEDS: Dexamethasone 4 MG TAB PO SCH ×4 (09:12→20:48)
[2023-02-13] MEDS: Dronabinol 2.5 MG CAP PO SCH ×2 (10:38→17:33)
[2023-02-13] MEDS ORDERED: Magnesium 2 GM/50 ML(in water) 2 GM in Premix 1 BAG IVPB SCH (10:45)
[2023-02-13] MEDS: Cefepime 2 GM in Sodium Chloride 0.9% 100 ML IVPB SCH ×2 (12:40→23:02)
[2023-02-13] MEDS ORDERED: Furosemide 40 MG/4 ML VIAL SLOW IVP SCH (21:00)
[2023-02-14 00:42] LABS: Vancomycin, Trough 20.9 ug/mL
[2023-02-14] MEDS: Vancomycin (BATCH) 1.25 GM in Premix 1 BAG IVPB SCH (01:05)
[2023-02-14] MEDS: Vancomycin 1 GM in Premix 1 BAG IVPB SCH ×3 (01:07→17:44)
[2023-02-14] MEDS: D5W-AA 4.25% with LYTES 1,000 ML IV SCH ×2 (02:04→22:11)
[2023-02-14] MEDS: Aluminum & Magnesium Hydroxide 60 ML, diphenhydrAMINE 150 MG, Lidocaine 2% Viscous Solu... SSW SCH ×6 (02:21→22:11)
[2023-02-14] MEDS: Levothyroxine Sodium 75 MCG TAB PO SCH (05:33)
[2023-02-14 05:36] LABS: Phosphorus 2.3 mg/dL (2.3-4.7)
[2023-02-14 05:38] LABS: Anion Gap 12 mmol/L (10-20); BUN (Urea Nitrogen) 23 mg/dL (8.4-25.7); Calc. Creatinine Clearance 124 mL/min (70-130); Calcium 8.1 mg/dL (7.8-10.44); Carbon Dioxide 25 mmol/L (23-31); Chloride 99 mmol/L (98-107); Estimated GFR 118; Glucose 183 mg/dL (80-115); Potassium 4.3 mmol/L (3.5-5.1); Sodium 132 mmol/L (136-145)
[2023-02-14 06:05] LABS: #Monocytes 0.4 thou/uL (0.11-0.59); #Neutrophils 9.9 thou/uL (1.40-6.50); %Basophils 0.1 % (0.0-1.0); %Lymphocytes 2.3 % (21.0-51.0); %Monocytes 3.4 % (0.0-10.0); %Neutrophils 92.7 % (42.0-75.0); Hematocrit 24.8 % (42.0-52.0); Hemoglobin 8.5 g/dL (14.0-18.0); Mean Corpuscular HGB CONC 34.3 g/dL (32.0-36.0); Mean Corpuscular Hemoglobin 33.6 pg (27.0-31.0); Mean Platelet Volume 11.5 fL (7.4-10.4); Platelet Count 100 10x3/uL (130-400); RBC Distribution Width 15.2 % (11.5-14.5); Red Blood Cell (RBC) Count 2.53 mill/uL (4.70-6.10); White Blood Cell (WBC) Count 10.7 10x3/uL (4.8-10.8)
[2023-02-14] MEDS ORDERED: Magnesium 2 GM/50 ML(in water) 2 GM in Premix 1 BAG IVPB SCH (08:00)
[2023-02-14] MEDS: OLANZapine 5 MG TAB PO SCH (08:22)
[2023-02-14] MEDS: Dronabinol 2.5 MG CAP PO SCH ×2 (09:05→16:22)
[2023-02-14] MEDS: Dexamethasone 4 MG TAB PO SCH ×2 (09:06→13:55)
[2023-02-14] MEDS: Folic Acid 1 MG TAB PO SCH (09:06)
[2023-02-14] MEDS: Cefepime 2 GM in Sodium Chloride 0.9% 100 ML IVPB SCH ×2 (11:39→23:14)
[2023-02-14 12:18] LABS: Legionella Urinary Ag Negative (Negative); Strep pneumo Urine Ag NEGATIVE (NEGATIVE)
[2023-02-14] MEDS ORDERED: Aspirin 325 mg Enteric Coated Tablet PO SCH (17:00)
[2023-02-14] MEDS ORDERED: Aspirin 300 MG Suppository PR SCH (17:30)
[2023-02-14] MEDS: Dexamethasone 4 mg/ml Vial SLOW IVP SCH (22:11)
[2023-02-15 00:49] LABS: Vancomycin, Trough 17.7 ug/mL
[2023-02-15] MEDS: Vancomycin 1 GM in Premix 1 BAG IVPB SCH ×3 (01:41→17:34)
[2023-02-15] MEDS: Aluminum & Magnesium Hydroxide 60 ML, diphenhydrAMINE 150 MG, Lidocaine 2% Viscous Solu... SSW SCH ×6 (02:12→23:11)
[2023-02-15] MEDS: Levothyroxine Sodium 75 MCG TAB PO SCH (06:36)
[2023-02-15 06:55] LABS: #Monocytes 0.5 thou/uL (0.11-0.59); #Neutrophils 9.8 thou/uL (1.40-6.50); %Basophils 0.3 % (0.0-1.0); %Monocytes 4.6 % (0.0-10.0); Hematocrit 27.7 % (42.0-52.0); Hemoglobin 9.2 g/dL (14.0-18.0); Mean Corpuscular HGB CONC 33.2 g/dL (32.0-36.0); Mean Corpuscular Hemoglobin 32.7 pg (27.0-31.0); Mean Corpuscular Volume 98.6 fl (78.0-98.0); Platelet Count 104 10x3/uL (130-400); RBC Distribution Width 15.7 % (11.5-14.5); Red Blood Cell (RBC) Count 2.81 mill/uL (4.70-6.10)
[2023-02-15 07:12] LABS: Anion Gap 14 mmol/L (10-20); BUN (Urea Nitrogen) 28 mg/dL (8.4-25.7); Calc. Creatinine Clearance 124 mL/min (70-130); Calcium 8.5 mg/dL (7.8-10.44); Carbon Dioxide 23 mmol/L (23-31); Chloride 101 mmol/L (98-107); Estimated GFR 118; Glucose 112 mg/dL (80-115); Sodium 134 mmol/L (136-145)
[2023-02-15] MEDS ORDERED: Magnesium 2 GM/50 ML(in water) 2 GM in Premix 1 BAG IVPB SCH (08:00)
[2023-02-15] MEDS: Dexamethasone 4 mg/ml Vial SLOW IVP SCH ×3 (08:43→20:59)
[2023-02-15] MEDS ORDERED: Aspirin 325 MG TAB PO SCH (09:00)
[2023-02-15] MEDS ORDERED: Aspirin 300 MG Suppository PR SCH (09:00)
[2023-02-15] MEDS: OLANZapine 5 MG TAB PO SCH (09:40)
[2023-02-15] MEDS: Dronabinol 2.5 MG CAP PO SCH ×2 (09:40→17:31)
[2023-02-15] MEDS: Folic Acid 1 MG TAB PO SCH (09:40)
[2023-02-15] MEDS: Cefepime 2 GM in Sodium Chloride 0.9% 100 ML IVPB SCH ×2 (12:00→23:12)
[2023-02-15 13:12] LABS: Bilirubin Negative (Negative); Blood, Urine 2+ (Negative); CAUTI Indications for Culture Pelvic or flank pain; Clarity Clear (Clear); Glucose, Urine (Dipstick) 100 mg/dL (Negative); Ketone, Urine Negative (Negative); Leukocyte Negative Leu/uL (Negative); Nitrite Negative (Negative); Protein, Urine (Dipstick) 300 mg/dL (Neg-Trace); RBC/HPF 0-3 HPF (0-3); Specific Gravity, Urine 1.022 (1.002-1.036); Squamous Epithelial 0-3 HPF (0-3); Urobilinogen Normal mg/dL (Less than 2); WBC/HPF 0-3 HPF (0-3)
[2023-02-15 13:14] LABS: Bacteria/HPF 1+ HPF (None Seen)
[2023-02-15 13:15] LABS: Urine Culture Reflex No No
[2023-02-15] MEDS: D5W-AA 4.25% with LYTES 1,000 ML IV SCH (14:47)
[2023-02-15] MEDS: Morphine 2 MG/ML VIAL SLOW IVP PRN (19:15)
[2023-02-16 00:49] LABS: Vancomycin, Trough 20.7 ug/mL
[2023-02-16] MEDS: Vancomycin 1 GM in Premix 1 BAG IVPB SCH (00:55)
[2023-02-16] MEDS: Morphine 2 MG/ML VIAL SLOW IVP PRN ×2 (01:47→19:41)
[2023-02-16] MEDS: Aluminum & Magnesium Hydroxide 60 ML, diphenhydrAMINE 150 MG, Lidocaine 2% Viscous Solu... SSW SCH ×6 (02:14→22:00)
[2023-02-16] MEDS: Levothyroxine Sodium 75 MCG TAB PO SCH (06:03)
[2023-02-16] MEDS ORDERED: Activase 2 MG VIAL CATH SCH (08:15)
[2023-02-16] MEDS: Dexamethasone 4 mg/ml Vial SLOW IVP SCH ×3 (09:16→20:49)
[2023-02-16] MEDS: Folic Acid 1 MG TAB PO SCH (09:48)
[2023-02-16] MEDS: OLANZapine 5 MG TAB PO SCH (09:48)
[2023-02-16] MEDS: Vancomycin HCl 750 MG in Sodium Chloride 0.9% 250 ML 250 ML IVPB SCH ×2 (09:49→16:56)
[2023-02-16] MEDS ORDERED: Sterile Water 10 ML VIAL IVP SCH (10:15)
[2023-02-16] MEDS: Dronabinol 2.5 MG CAP PO SCH ×2 (10:18→17:44)
[2023-02-16] MEDS: Cefepime 2 GM in Sodium Chloride 0.9% 100 ML IVPB SCH (12:12)
[2023-02-16 13:00] LABS: #Monocytes 0.6 thou/uL (0.11-0.59); #Neutrophils 8.6 thou/uL (1.40-6.50); %Basophils 0.1 % (0.0-1.0); %Lymphocytes 3.1 % (21.0-51.0); %Monocytes 5.8 % (0.0-10.0); %Neutrophils 88.7 % (42.0-75.0); Mean Corpuscular HGB CONC 33.7 g/dL (32.0-36.0); Mean Corpuscular Hemoglobin 33.3 pg (27.0-31.0); Mean Corpuscular Volume 98.9 fl (78.0-98.0); Mean Platelet Volume 11.5 fL (7.4-10.4); Platelet Count 140 10x3/uL (130-400); RBC Distribution Width 15.9 % (11.5-14.5); Red Blood Cell (RBC) Count 1.89 mill/uL (4.70-6.10); White Blood Cell (WBC) Count 9.7 10x3/uL (4.8-10.8)
[2023-02-16 13:02] LABS: Hematocrit 18.7 % (42.0-52.0)
[2023-02-16 13:03] LABS: Hemoglobin 6.3 g/dL (14.0-18.0)
[2023-02-16 13:15] LABS: Anion Gap 10 mmol/L (10-20); BUN (Urea Nitrogen) 28 mg/dL (8.4-25.7); Calc. Creatinine Clearance 127 mL/min (70-130); Calcium 8.2 mg/dL (7.8-10.44); Carbon Dioxide 23 mmol/L (23-31); Chloride 102 mmol/L (98-107); Estimated GFR 119; Glucose 172 mg/dL (80-115); Magnesium 1.7 mg/dL (1.6-2.6); Potassium 4.2 mmol/L (3.5-5.1); Sodium 131 mmol/L (136-145)
[2023-02-16] MEDS: D5W-AA 4.25% with LYTES 1,000 ML IV SCH (15:51)
[2023-02-16 16:23] LABS: Hematocrit 18.3 % (42.0-52.0); Hemoglobin 6.1 g/dL (14.0-18.0); Platelet Count 121 10x3/uL (130-400)
[2023-02-16 16:36] LABS: INR-International Normal Ratio 1.5; PTT 34.2 sec (22.9-36.1); Prothrombin Time 18.2 sec (12.0-14.7)
[2023-02-16] MEDS: HYDROcodone/Acetaminophen 5/325 mg Tablet PO PRN ×2 (19:25→22:52)
[2023-02-16] MEDS: Pantoprazole 40 MG VIAL IVP SCH (20:48)
[2023-02-16 22:02] LABS: Iron 77 ug/dL (65-175); Iron Binding Capacity, Total 181 mcg/dL (261-462)
[2023-02-16 22:25] LABS: Bilirubin Negative (Negative); Blood, Urine Negative (Negative); CAUTI Indications for Culture Acute Hematuria; Clarity Clear (Clear); Glucose, Urine (Dipstick) Normal (Negative); Ketone, Urine Negative (Negative); Leukocyte Negative Leu/uL (Negative); Nitrite Negative (Negative); Protein, Urine (Dipstick) 10 mg/dL (Neg-Trace); RBC/HPF 0-3 HPF (0-3); Specific Gravity, Urine 1.017 (1.002-1.036); Squamous Epithelial None Seen HPF (0-3); Urobilinogen Normal mg/dL (Less than 2); WBC/HPF 0-3 HPF (0-3); Yeast-Budding 1+ HPF (None Seen)
[2023-02-16 22:26] LABS: Bacteria/HPF Rare-Few HPF (None Seen)
[2023-02-16 22:27] LABS: Urine Culture Reflex No No
[2023-02-17] MEDS: Cefepime 2 GM in Sodium Chloride 0.9% 100 ML IVPB SCH (00:55)
[2023-02-17] MEDS: Vancomycin HCl 750 MG in Sodium Chloride 0.9% 250 ML 250 ML IVPB SCH (01:35)
[2023-02-17] MEDS: Aluminum & Magnesium Hydroxide 60 ML, diphenhydrAMINE 150 MG, Lidocaine 2% Viscous Solu... SSW SCH ×6 (02:24→21:21)
[2023-02-17] MEDS: D5W-AA 4.25% with LYTES 1,000 ML IV SCH ×2 (03:13→23:26)
[2023-02-17 04:51] LABS: #Monocytes 0.6 thou/uL (0.11-0.59); #Neutrophils 6.3 thou/uL (1.40-6.50); %Basophils 0.1 % (0.0-1.0); %Lymphocytes 4.5 % (21.0-51.0); %Monocytes 7.7 % (0.0-10.0); %Neutrophils 85.1 % (42.0-75.0); Hematocrit 22.7 % (42.0-52.0); Hemoglobin 7.7 g/dL (14.0-18.0); Mean Corpuscular HGB CONC 33.9 g/dL (32.0-36.0); Mean Corpuscular Hemoglobin 32.2 pg (27.0-31.0); Mean Platelet Volume 11.5 fL (7.4-10.4); Platelet Count 96 10x3/uL (130-400); RBC Distribution Width 15.9 % (11.5-14.5); Red Blood Cell (RBC) Count 2.39 mill/uL (4.70-6.10); White Blood Cell (WBC) Count 7.4 10x3/uL (4.8-10.8)
[2023-02-17 05:14] LABS: Anion Gap 11 mmol/L (10-20); BUN (Urea Nitrogen) 29 mg/dL (8.4-25.7); Calc. Creatinine Clearance 135 mL/min (70-130); Calcium 8.4 mg/dL (7.8-10.44); Carbon Dioxide 23 mmol/L (23-31); Chloride 105 mmol/L (98-107); Estimated GFR 121; Glucose 157 mg/dL (80-115); Magnesium 1.8 mg/dL (1.6-2.6); Potassium 4.3 mmol/L (3.5-5.1); Sodium 135 mmol/L (136-145)
[2023-02-17] MEDS: Levothyroxine Sodium 75 MCG TAB PO SCH (06:00)
[2023-02-17] MEDS ORDERED: Magnesium 2 GM/50 ML(in water) 2 GM in Premix 1 BAG IVPB SCH (08:00)
[2023-02-17] MEDS: Morphine 2 MG/ML VIAL SLOW IVP PRN ×3 (09:24→20:45)
[2023-02-17] MEDS: Dexamethasone 4 mg/ml Vial SLOW IVP SCH ×3 (09:25→22:48)
[2023-02-17] MEDS: Folic Acid 1 MG TAB PO SCH (09:25)
[2023-02-17] MEDS: OLANZapine 5 MG TAB PO SCH (09:25)
[2023-02-17] MEDS: Dronabinol 2.5 MG CAP PO SCH ×2 (09:26→17:50)
[2023-02-17] MEDS: Pantoprazole 40 MG VIAL IVP SCH ×2 (09:27→20:46)
[2023-02-17] MEDS: Ondansetron PF 4 MG/2 ML Vial IVP PRN (20:46)
[2023-02-17] MEDS: QUEtiapine 200 MG TAB PO SCH (20:46)
[2023-02-18] MEDS: Aluminum & Magnesium Hydroxide 60 ML, diphenhydrAMINE 150 MG, Lidocaine 2% Viscous Solu... SSW SCH ×7 (03:18→20:59)
[2023-02-18] MEDS: Levothyroxine Sodium 75 MCG TAB PO SCH ×2 (05:49→06:06)
[2023-02-18 06:05] LABS: #Monocytes 0.5 thou/uL (0.11-0.59); #Neutrophils 4.8 thou/uL (1.40-6.50); %Basophils 0.2 % (0.0-1.0); %Lymphocytes 4.1 % (21.0-51.0); %Neutrophils 85.6 % (42.0-75.0); Hematocrit 22.6 % (42.0-52.0); Hemoglobin 7.7 g/dL (14.0-18.0); Mean Corpuscular HGB CONC 34.1 g/dL (32.0-36.0); Mean Corpuscular Hemoglobin 32.8 pg (27.0-31.0); Mean Corpuscular Volume 96.2 fl (78.0-98.0); RBC Distribution Width 16.1 % (11.5-14.5); Red Blood Cell (RBC) Count 2.35 mill/uL (4.70-6.10); White Blood Cell (WBC) Count 5.7 10x3/uL (4.8-10.8)
[2023-02-18 06:09] LABS: Platelet Count 85 10x3/uL (130-400)
[2023-02-18 06:28] LABS: Anion Gap 13 mmol/L (10-20); BUN (Urea Nitrogen) 25 mg/dL (8.4-25.7); Calc. Creatinine Clearance 129 mL/min (70-130); Calcium 8.5 mg/dL (7.8-10.44); Carbon Dioxide 25 mmol/L (23-31); Chloride 100 mmol/L (98-107); Estimated GFR 120; Glucose 164 mg/dL (80-115); Magnesium 1.9 mg/dL (1.6-2.6); Potassium 4.5 mmol/L (3.5-5.1); Sodium 133 mmol/L (136-145)
[2023-02-18] MEDS ORDERED: Magnesium 2 GM/50 ML(in water) 2 GM in Premix 1 BAG IVPB SCH (08:00)
[2023-02-18] MEDS: Dronabinol 2.5 MG CAP PO SCH ×2 (09:38→17:49)
[2023-02-18] MEDS: Dexamethasone 4 mg/ml Vial SLOW IVP SCH ×2 (09:47→14:24)
[2023-02-18] MEDS: Folic Acid 1 MG TAB PO SCH (09:54)
[2023-02-18] MEDS: OLANZapine 5 MG TAB PO SCH (09:54)
[2023-02-18] MEDS: Pantoprazole 40 MG VIAL IVP SCH ×2 (09:54→20:42)
[2023-02-18] MEDS: Morphine 2 MG/ML VIAL SLOW IVP PRN ×2 (13:25→17:54)
[2023-02-18] MEDS ORDERED: Aspirin 81 mg Enteric Coated Tablet PO SCH (14:45)
[2023-02-18] MEDS: D5W-AA 4.25% with LYTES 1,000 ML IV SCH (20:31)
[2023-02-18] MEDS: QUEtiapine 25 MG TAB PO SCH ×2 (20:42→20:59)
[2023-02-19] MEDS: Morphine 2 MG/ML VIAL SLOW IVP PRN ×2 (00:01→08:36)
[2023-02-19] MEDS: Aluminum & Magnesium Hydroxide 60 ML, diphenhydrAMINE 150 MG, Lidocaine 2% Viscous Solu... SSW SCH ×4 (04:21→14:46)
[2023-02-19] MEDS: Levothyroxine Sodium 75 MCG TAB PO SCH ×2 (06:10→06:31)
[2023-02-19 06:31] LABS: #Monocytes 0.6 thou/uL (0.11-0.59); #Neutrophils 9.7 thou/uL (1.40-6.50); %Basophils 0.4 % (0.0-1.0); %Monocytes 5.5 % (0.0-10.0); %Neutrophils 85.4 % (42.0-75.0); Hematocrit 26.5 % (42.0-52.0); Hemoglobin 8.9 g/dL (14.0-18.0); Mean Corpuscular HGB CONC 33.6 g/dL (32.0-36.0); Mean Corpuscular Hemoglobin 32.6 pg (27.0-31.0); Mean Corpuscular Volume 97.1 fl (78.0-98.0); Mean Platelet Volume 11.3 fL (7.4-10.4); Platelet Count 143 10x3/uL (130-400); RBC Distribution Width 16.6 % (11.5-14.5); Red Blood Cell (RBC) Count 2.73 mill/uL (4.70-6.10); White Blood Cell (WBC) Count 11.4 10x3/uL (4.8-10.8)
[2023-02-19 06:57] LABS: Anion Gap 11 mmol/L (10-20); BUN (Urea Nitrogen) 27 mg/dL (8.4-25.7); Calc. Creatinine Clearance 142 mL/min (70-130); Calcium 8.7 mg/dL (7.8-10.44); Carbon Dioxide 25 mmol/L (23-31); Chloride 101 mmol/L (98-107); Estimated GFR 123; Glucose 106 mg/dL (80-115); Potassium 3.9 mmol/L (3.5-5.1); Sodium 133 mmol/L (136-145)
[2023-02-19] MEDS: Pantoprazole 40 MG VIAL IVP SCH (08:37)
[2023-02-19] MEDS ORDERED: Aspirin 81 mg Enteric Coated Tablet PO SCH (09:00)
[2023-02-19] MEDS ORDERED: Magnesium 2 GM/50 ML(in water) 2 GM in Premix 1 BAG IVPB SCH (09:00)
[2023-02-19] MEDS: Dronabinol 2.5 MG CAP PO SCH (09:24)
[2023-02-19] MEDS: Dexamethasone 1 MG TAB PO SCH ×2 (09:25→13:09)
[2023-02-19] MEDS: OLANZapine 5 MG TAB PO SCH (09:25)
[2023-02-19] MEDS: Folic Acid 1 MG TAB PO SCH (09:25)
[2023-02-19] MEDS ORDERED: cefTRIAXone\\ROCEPHIN 1 GM in Sodium Chloride 0.9% 100 ML IVPB SCH (12:00)
[2023-02-19 13:00] VITALS: BP 101/72; TEMP 97
[2023-02-19] MEDS ORDERED: Morphine 2 MG/ML VIAL SLOW IVP PRN (13:56)
[2023-02-19] MEDS ORDERED: Furosemide 40 MG/4 ML VIAL SLOW IVP SCH (14:00)
[2023-02-19] MEDS ORDERED: Dexamethasone 2 MG in Sodium Chloride 0.9% 50 ML IVPB SCH (15:00)
[2023-02-19] MEDS ORDERED: Dexamethasone 4 mg/ml Vial SLOW IVP SCH (15:00)
== END 2023-02-19 15:20 | disposition hospice, inpatient (51) | DRG 871 ==
LOC: ERS 10:11 → MSONC 13:30
PROVIDERS: ADMIT Internal Medicine; ATTEND Family Medicine
PROC: 3E03329 Introduction of Other Anti-infective into Peripheral Vein, Percutaneous Approach (ICD-10-PCS; 2023-02-06)
PROC: 30233N1 Transfusion of Nonautologous Red Blood Cells into Peripheral Vein, Percutaneous Approach (ICD-10-PCS; principal; 2023-02-16)
DX: A41.50 Gram-negative sepsis, unspecified (principal); D61.810 Antineoplastic chemotherapy induced pancytopenia; G93.41 Metabolic encephalopathy; J15.69 Pneumonia due to other Gram-negative bacteria; J96.01 Acute respiratory failure with hypoxia; Z51.5 Encounter for palliative care; C34.90 Malignant neoplasm of unspecified part of unspecified bronchus or lung; J90 Pleural effusion, not elsewhere classified; E44.0 Moderate protein-calorie malnutrition; Z68.1 Body mass index [BMI] 19.9 or less, adult; G83.4 Cauda equina syndrome; C79.31 Secondary malignant neoplasm of brain; C79.70 Secondary malignant neoplasm of unspecified adrenal gland; C78.89 Secondary malignant neoplasm of other digestive organs; C79.51 Secondary malignant neoplasm of bone; M84.48XA Pathological fracture, other site, initial encounter for fracture; E03.9 Hypothyroidism, unspecified; F39 Unspecified mood [affective] disorder; F32.A Depression, unspecified; G89.3 Neoplasm related pain (acute) (chronic); R13.10 Dysphagia, unspecified; G93.89 Other specified disorders of brain; Z85.118 Personal history of other malignant neoplasm of bronchus and lung; Z86.73 Personal history of transient ischemic attack (TIA), and cerebral infarction without residual deficits; Z79.82 Long term (current) use of aspirin; Z79.899 Other long term (current) drug therapy
CPT/HCPCS: 36415; 36416; 36430; 51701; 70450; 70490; 70553; 71045; 71250; 77412; 80048; 80053; 80202; 80306; 80307; 81001; 82728; 83540; 83550; 83605; 83690; 83735; 84100; 84145; 84484; 85025; 85046; 85610; 85730; 86850; 86900; 86901; 87040; 87081; 87086; 87449; 87899; 93005; 93010; 93923; 94760; 96361; 96365; 96375; C9113; J0692; J0696; J1100; J1940; J2272; J2405; J2997; J3370; J3370-JW; J3475; J3490; J7050; J7120; J8540; P9016; Q0163; Q0167

== ENCOUNTER 2023-02-19 15:28 | Inpatient (IN) | payer OTHER ==
[2023-02-19] MEDS ORDERED: Morphine 2 MG/ML VIAL SLOW IVP PRN (15:38)
[2023-02-19] MEDS ORDERED: Lorazepam 2 MG/ML VIAL SLOW IVP PRN (15:39)
[2023-02-19 17:19] VITALS: BMI 15.8
[2023-02-19] MEDS: Morphine 2 MG/ML VIAL SLOW IVP PRN ×2 (19:27→22:57)
[2023-02-19] MEDS: Lorazepam 2 MG/ML VIAL SLOW IVP PRN (21:22)
[2023-02-20] MEDS: Morphine 2 MG/ML VIAL SLOW IVP PRN ×8 (04:51→22:19)
[2023-02-20] MEDS: Lorazepam 2 MG/ML VIAL SLOW IVP PRN ×2 (04:57→12:21)
[2023-02-21] MEDS: Lorazepam 2 MG/ML VIAL SLOW IVP PRN ×8 (00:03→22:27)
[2023-02-21] MEDS: Morphine 2 MG/ML VIAL SLOW IVP PRN ×8 (02:00→22:28)
[2023-02-22] MEDS: Morphine 2 MG/ML VIAL SLOW IVP PRN ×5 (00:05→09:24)
[2023-02-22] MEDS: Lorazepam 2 MG/ML VIAL SLOW IVP PRN ×5 (00:05→09:25)
[2023-02-22 08:26] VITALS: BP 42/28; TEMP 97.5
== END 2023-02-22 09:40 | disposition expired | DRG 951 ==
LOC: MSONC 15:28
PROVIDERS: ADMIT Family Medicine; ATTEND Family Medicine
DX: Z51.5 Encounter for palliative care (principal); G93.41 Metabolic encephalopathy; A41.9 Sepsis, unspecified organism; J18.9 Pneumonia, unspecified organism; D61.810 Antineoplastic chemotherapy induced pancytopenia; C34.90 Malignant neoplasm of unspecified part of unspecified bronchus or lung; F39 Unspecified mood [affective] disorder; T45.1X5A Adverse effect of antineoplastic and immunosuppressive drugs, initial encounter; E03.9 Hypothyroidism, unspecified; Z79.899 Other long term (current) drug therapy; Z79.82 Long term (current) use of aspirin; Z79.890 Hormone replacement therapy; Z86.73 Personal history of transient ischemic attack (TIA), and cerebral infarction without residual deficits
CPT/HCPCS: J2060; J2272